=== PATIENT | male | born 1960 | race Caucasian/White ===

== ENCOUNTER 2017-02-27 19:13 | Emergency (ER) | payer OTHER ==
[2017-02-27 19:13] VITALS: BMI 31.6
[2017-02-27 19:27] VITALS: TEMP 97.8
[2017-02-27] MEDS ORDERED: Aspirin 325 mg EC Tablets PO STA (19:48)
[2017-02-27] MEDS ORDERED: Aspirin 325 mg EC Tablets PO ONE (19:57)
[2017-02-27 20:04] LABS: BASO % 0.8 % (0.0-2.0); EOS # 0.2 K/uL (0.0-0.7); LYMPH # 1.6 K/uL (1.0-4.3); LYMPH % 31.4 % (20.0-40.0); MEAN CELL VOLUME 86.9 fL (80.0-94.0); MEAN CORPUSCULAR HEMOGLOBIN 27.8 pg (27.0-31.0); MONO # 0.9 K/uL (0.0-0.8); RED CELL DISTRIBUTION WIDTH 13.7 % (11.5-14.5); WHITE BLOOD COUNT 5.1 K/uL (4.8-10.8)
[2017-02-27] MEDS ORDERED: Alum-Mag Hydrox-Simethicone Susp (30 mL) PO STA (20:12)
[2017-02-27 20:18] LABS: CHLORIDE 101 mmol/L (98-107); SODIUM 137 mmol/L (132-148)
[2017-02-27 20:19] LABS: POTASSIUM 3.9 mmol/L (3.6-5.2)
[2017-02-27 20:21] LABS: ALB/GLOB RATIO 1.1 (1.0-2.1); ALKALINE PHOSPHATASE 83 U/L (38-126); ALT/SGPT 33 U/L (21-72); AST/SGOT 36 U/L (17-59); BILIRUBIN,TOTAL 0.6 mg/dL (0.2-1.3); BLOOD UREA NITROGEN 17 mg/dL (9-20); CARBON DIOXIDE 25 mmol/L (22-30); GFR AFRICAN-AMERICAN > 60; TOTAL PROTEIN 7.9 g/dL (6.3-8.3)
[2017-02-27 20:22] LABS: ALCOHOL SERUM < 10 mg/dl (0-10); CALCIUM 8.8 mg/dl (8.6-10.4); GLUCOSE,RANDOM 79 mg/dL (75-110)
[2017-02-27 20:23] LABS: INR 1.1; PARTIAL THROMBOPLASTIN TIME 35 SECONDS (21-34)
[2017-02-27] MEDS ORDERED: Alum-Mag Hydrox-Simethicone Susp (30 mL) ONE (20:28)
--- NOTE | 2017-02-27 20:30 | C.PDOC ---
Time Seen by Provider: 02/27/17 19:39 Chief Complaint (Nursing): Chest Pain Past Medical History Vital Signs: Last Vital Signs Temp 97.8 F 02/27/17 21:01 Pulse 54 L 02/27/17 21:01 Resp 15 02/27/17 21:01 BP 108/64 02/27/17 21:01 Pulse Ox 94 L 02/27/17 21:01 - Medical History PMH: Cardia Arrhythmia Denies: Chronic Kidney Disease - [facility] Procedures INSERT OF MONITOR DEV INTO CHEST SUBCU/FASCIA, PERC APPROACH (07/23/16) Family History: States: Unknown Family Hx - Social History Hx Tobacco Use: Yes Hx Alcohol Use: Yes Hx Substance Use: No - Immunization History Hx Tetanus Toxoid Vaccination: No Hx Influenza Vaccination: No Hx Pneumococcal Vaccination: No ED Course And Treatment - Laboratory Results Result Diagrams: 02/27/17 19:57 02/27/17 19:57 Lab Interpretation: Normal (trop, bnp, d-dimer neg.) ECG: Interpreted By Me ECG Rhythm: Sinus Rhythm ECG Interpretation: Normal Rate From EC O2 Sat by Pulse Oximetry: 98 Pulse Ox Interpretation: Normal - Radiology CXR: Interpreted by Me CXR Interpretation: Yes: No Acute Disease Progress Note: Pepcid 20 IV and Maalox 30 cc PO with complete resolution of symptoms. Highly indicative of GI etiology of atypical CP Reevaluation Time: 20:50 Reassessment Condition: Improved Medical Decision Making Medical Decision Making: today is 8th ED visit with normal cardiac w/u. many inpatient evals with neg w/u. 11/02: normal perfusion stress test 05/01: normal cardiac cath 08/01 loop recorder installed 09/02: Loop recorder eval with no events. highly suspect etiology OTHER than cardiac, suggest GI- considering excellent exercise tolerance (works in [employer] repeatedly running up and down stairs) and middle obesity, consider GERD and/or hiatal hernia Refer to GI Stripping [facility]iler Disposition Doctor Will See Patient In The: Office Counseled Patient/Family Regarding: Studies Performed, Diagnosis - Disposition Referrals: Ivone Ma MD [Staff Provider] - Zayra Louis [Staff Provider] - Tevin Pickett MD [Staff Provider] - Disposition: HOME/ ROUTINE Disposition Time: 20:45 Condition: GOOD Additional Instructions: GERD: continue Pepcid 20 mg @ night and Maalox 30 cc (one tablespoon) 4-5x/day between meals Your discomfort MUCH improved with Maalox 30 cc's. suspect GERD and/or Hiatal Hernia Observe a GERD diet Conitinue to loose weight Consider GI evaluation with GI [facility] Chest Pain: LOW susp of cardiac etiology Follow-up with Dr. Ma to have your even recorder interrogated Follow-up w Dr. Annita Pickett- your PMD- for further treatment guidance. Prescriptions: Aluminum Hydroxide/Magnesium [Maalox Plus 30 ml] 30 ml PO 5XD PRN #240 ml PRN Reason: gerd Famotidine [Pepcid] 20 mg PO HS #30 tab Instructions: Gastroesophageal Reflux Disease (ED), Thoracic Pain (ED) - Clinical Impression Clinical Impression: Chest discomfort
[2017-02-27 21:01] VITALS: BP 108/64; PULSE 54; RESP 15
[2017-02-27 21:26] VITALS: O2SAT 98
--- NOTE | 2017-02-28 08:32 | RAD ---
PROCEDURE: CHEST RADIOGRAPH, 1 VIEW HISTORY: Shortness of breath COMPARISON: 10/19/2016 FINDINGS: LUNGS: Mild venous congestion. External device projecting over the medial left mukesh thorax. PLEURA: No pneumothorax or pleural fluid seen. CARDIOVASCULAR: Tortuous aorta. Heart size within normal limits. OSSEOUS STRUCTURES: No significant abnormalities. VISUALIZED UPPER ABDOMEN: Normal. OTHER FINDINGS: None. IMPRESSION: Mild venous congestion.
--- NOTE | 2017-02-28 23:52 | CARD ---
APPROVED REPORT EKG Measurement Heart [id number] <Conclusion> Sinus bradycardia Otherwise normal ECG
== END 2017-02-27 21:01 | disposition home or self-care (01) ==
LOC: C.ER 19:13
DX: R07.89 Other chest pain (principal)

== ENCOUNTER 2017-09-01 12:22 | Inpatient (IN) | payer OTHER ==
[2017-09-01 12:23] VITALS: BMI 36.1
[2017-09-01 14:57] LABS: BASO % 0.7 % (0.0-2.0); EOS # 0.1 K/uL (0.0-0.7); EOS % 2.3 % (0.0-4.0); HEMATOCRIT 44.8 % (35.0-51.0); LYMPH # 1.6 K/uL (1.0-4.3); LYMPH % 33.2 % (20.0-40.0); MEAN CELL VOLUME 86.2 fL (80.0-94.0); MEAN CORPUSCULAR HEMOGLOBIN 28.2 pg (27.0-31.0); MEAN CORPUSCULAR HGB CONC 32.7 g/dL (33.0-37.0); MEAN PLATELET VOLUME 9.1 fL (7.2-11.7); MONO # 0.7 K/uL (0.0-0.8); MONO % 14.6 % (0.0-10.0); NRBC % 0.3 % (0.0-2.0); RED CELL DISTRIBUTION WIDTH 13.8 % (11.5-14.5); WHITE BLOOD COUNT 4.9 K/uL (4.8-10.8)
[2017-09-01 15:10] LABS: ALKALINE PHOSPHATASE 99 U/L (38-126); ALT/SGPT 43 U/L (21-72); BILIRUBIN,TOTAL 0.7 mg/dL (0.2-1.3); BLOOD UREA NITROGEN 14 mg/dL (9-20); CALCIUM 8.9 mg/dl (8.6-10.4); CARBON DIOXIDE 28 mmol/L (22-30); CHLORIDE 103 mmol/L (98-107); GFR AFRICAN-AMERICAN > 60; GLUCOSE,RANDOM 78 mg/dL (75-110); POTASSIUM 3.9 mmol/L (3.6-5.2); SODIUM 138 mmol/L (132-148); TOTAL PROTEIN 8.9 g/dL (6.3-8.3)
[2017-09-01 15:23] LABS: ALB/GLOB RATIO 0.9 (1.0-2.1); AST/SGOT 30 U/L (17-59)
--- NOTE | 2017-09-01 16:15 | RAD ---
PROCEDURE: CHEST RADIOGRAPH, 1 VIEW HISTORY: epi abd pain, ? chest pain COMPARISON: 02/27/2017 and the 10/19/2016 portable chest x-ray FINDINGS: LUNGS: Clear. PLEURA: No pneumothorax or pleural fluid seen. CARDIOVASCULAR: Normal size. The small metallic density projecting over the heart inferred as a cardiac monitoring device is unchanged in appearance para OSSEOUS STRUCTURES: No significant abnormalities. VISUALIZED UPPER ABDOMEN: The asymmetrically elevated right hemidiaphragm most closely approximates the 10/19/2016 chest x-ray appearing Interval asymmetrical elevation of the OTHER FINDINGS: None. IMPRESSION: No active disease.
[2017-09-01] MEDS ORDERED: Morphine 4 MG/ML VIAL ONE (16:26)
[2017-09-01] MEDS ORDERED: Iohexol 300 100 ML IJ ONE (16:51)
--- NOTE | 2017-09-01 17:36 | CT ---
PROCEDURE: CT Abdomen and Pelvis with contrast HISTORY: LUQ abd pain COMPARISON: None available. TECHNIQUE: Contrast dose: 100 cc Omnipaque 300 Radiation dose: Total exam DLP = 921.87 mGy-cm. This CT exam was performed using one or more of the following dose reduction techniques: Automated exposure control, adjustment of the mA and/or kV according to patient size, and/or use of iterative reconstruction technique. FINDINGS: LOWER THORAX: No visible consolidation, pleural effusion, or pneumothorax. Small hiatal hernia/distal esophageal wall thickening. LIVER: Unremarkable unenhanced appearance. GALLBLADDER AND BILE DUCTS: Unremarkable unenhanced appearance. PANCREAS: Unremarkable unenhanced appearance. SPLEEN: Unremarkable unenhanced appearance. ADRENALS: Unremarkable unenhanced appearance. KIDNEYS AND URETERS: The kidneys enhance symmetrically. No hydronephrosis or obstructing calculus identified. Indeterminate 10 mm hypodensity, left midpole kidney. VASCULATURE: No aortic aneurysm. BOWEL: Stomach is nondistended. Lack of oral contrast limits evaluation for bowel pathology. Bowel loops appear within normal limits of caliber without evidence of obstruction. Moderate constipation. APPENDIX: The appendix appears within normal limits of caliber. No secondary signs of acute appendicitis. PERITONEUM: No significant free fluid. No definite free air. LYMPH NODES: No bulky adenopathy identified. BLADDER: Unremarkable. REPRODUCTIVE: Unremarkable. BONES: No acute osseous abnormality is detected. OTHER FINDINGS: None. IMPRESSION: Moderate constipation. Indeterminate 10 mm left renal hypodensity; suggest further evaluation with renal ultrasound.
--- NOTE | 2017-09-01 17:59 | C.PDOC ---
History Of Present Illness The patient reports that yesterday he developed sudden onset of LUQ abdominal pain. Patient reports that the pain radiated up to the left chest and was associated with 2-3 episode of vomiting. He states that the last episode was blood streaked. Patient also reports episodes of labile bradycardia, with heart rate dropping to 30s and rising to 50-60s. Denies diarrhea, fever, dysuria, constipation, SOB, cough, trauma, pleuritic pain. Time Seen by Provider: 09/01/17 14:07 Chief Complaint (Nursing): Abdominal Pain History Per: Patient History/Exam Limitations: no limitations Onset/Duration Of Symptoms: Hrs, Sudden Onset Current Symptoms Are (Timing): Still Present Location Of Pain/Discomfort: LUQ Radiation Of Pain To:: None Quality Of Discomfort: "Pain" Associated Symptoms: denies: Fever, Diarrhea, Constipation Additional History Per: Patient Past Medical History Reviewed: Historical Data, Nursing Documentation, Vital Signs Vital Signs: Last Vital Signs Temp 97.9 F 09/02/17 04:00 Pulse 42 L 09/02/17 04:26 Resp 20 09/02/17 04:00 BP 100/56 L 09/02/17 04:00 Pulse Ox 96 09/02/17 04:00 - Medical History PMH: Cardia Arrhythmia (Bradycardia) Denies: Alzheimer's Disease, Anemia, Anxiety, Arthritis, Asthma, Bipolar Disorder, Bronchitis, CHF, COPD, Crohn's Disease, Dementia, Depression, Diverticulitis, Emphysema, Fibromyalgia, Fractures, Gastrointestinal Ulcer, Gall Bladder Disease, HIV, HTN, Hypercholesterolemia, Hyperthyroidism, Hypothyroidism, Kidney Stones, Migraine, Mitral Valve Prolapse, Osteoporosis, Pancreatitis, Paranoia, Parkinson's Disease, Peripheral Edema, Pneumonia, Post Traumatic Stress Disorder, Chronic Kidney Disease, Schizophrenia, Seizures, Sickle Cell Disease, Sexually Transmitted Disease, Sleep Apnea, TIA Surgical History: No Surg Hx Denies: Appendectomy, Cholecystectomy, Coronary Stent, Pacemaker - [facility] Procedures INSERT OF MONITOR DEV INTO CHEST SUBCU/FASCIA, PERC APPROACH (07/23/16) Family History: States: Unknown Family Hx - Social History Hx Tobacco Use: Yes Hx Alcohol Use: Yes (socially) Hx Substance Use: No - Immunization History Hx Tetanus Toxoid Vaccination: No Hx Influenza Vaccination: No Hx Pneumococcal Vaccination: No Review Of Systems Constitutional: Negative for: Fever, Chills Respiratory: Negative for: Cough, Shortness of Breath Gastrointestinal: Positive for: Abdominal Pain (LUQ). Negative for: Constipation Genitourinary: Negative for: Dysuria Physical Exam - Physical Exam Appears: Non-toxic, No Acute Distress Skin: Normal Color, Warm, Dry Head: Atraumatic, Normacephalic Eye(s): bilateral: Normal Inspection Oral Mucosa: Moist Neck: Supple Chest: Symmetrical, No Deformity, No Tenderness Cardiovascular: Rhythm Regular, No Murmur Respiratory: Normal Breath Sounds, No Rales, No Rhonchi, No Wheezing Gastrointestinal/Abdominal: Soft, No Tenderness, No Guarding, No Rebound Back: No Vertebral Tenderness, No Paraspinal Tenderness Extremity: Normal ROM, Capillary Refill (less than 2 seconds ) Neurological/Psych: Oriented x3, Normal Speech, Normal Cognition Gait: Steady ED Course And Treatment - Laboratory Results Result Diagrams: 09/01/17 14:53 09/01/17 14:53 ECG: Interpreted By Me, Viewed By Me ECG Rhythm: Sinus Bradycardia Rate From EC O2 Sat by Pulse Oximetry: 100 (on RA ) Pulse Ox Interpretation: Normal - Other Rad CXR X-Ray: Interpreted by Me, Viewed By Me, Read By Radiologist Interpretation: PROCEDURE: CHEST RADIOGRAPH, 1 VIEW. HISTORY: epi abd pain, ? chest pain. COMPARISON: 02/27/2017 and the 10/19/2016 portable chest x-ray. FINDINGS: LUNGS: Clear. PLEURA: No pneumothorax or pleural fluid seen. CARDIOVASCULAR: Normal size. The small metallic density projecting over the heart inferred as a cardiac monitoring device is unchanged in appearance para. OSSEOUS STRUCTURES: No significant abnormalities. VISUALIZED UPPER ABDOMEN: The asymmetrically elevated right hemidiaphragm most closely approximates the 10/19/2016 chest x-ray appearing Interval asymmetrical elevation of the. OTHER FINDINGS: None. IMPRESSION: No active disease. - CT Scan/US CT A/P Other Rad Studies (CT/US): Interpreted By Me, Read By Radiologist, Radiology Report Reviewed CT/US Interpretation: PROCEDURE: CT Abdomen and Pelvis with contrast. HISTORY : LUQ abd pain. COMPARISON: None available. TECHNIQUE: Contrast dose: 100 cc Omnipaque 300. Radiation dose: Total exam DLP = 921.87 mGy-cm. This CT exam was performed using one or more of the following dose reduction techniques : Automated exposure control, adjustment of the mA and/or kV according to patient size, and/or use of iterative reconstruction technique. FINDINGS: LOWER THORAX: No visible consolidation, pleural effusion, or pneumothorax. Small hiatal hernia/distal esophageal wall thickening. LIVER: Unremarkable unenhanced appearance. GALLBLADDER AND BILE DUCTS: Unremarkable unenhanced appearance. PANCREAS: Unremarkable unenhanced appearance. SPLEEN: Unremarkable unenhanced appearance. ADRENALS: Unremarkable unenhanced appearance. KIDNEYS AND URETERS: The kidneys enhance symmetrically. No hydronephrosis or obstructing calculus identified. Indeterminate 10 mm hypodensity, left midpole kidney. VASCULATURE: No aortic aneurysm. BOWEL: Stomach is nondistended. Lack of oral contrast limits evaluation for bowel pathology. Bowel loops appear within normal limits of caliber without evidence of obstruction. Moderate constipation. APPENDIX: The appendix appears within normal limits of caliber. No secondary signs of acute appendicitis. PERITONEUM : No significant free fluid. No definite free air. LYMPH NODES: No bulky adenopathy identified. BLADDER: Unremarkable. REPRODUCTIVE: Unremarkable. BONES: No acute osseous abnormality is detected. OTHER FINDINGS: None. IMPRESSION: Moderate constipation. Indeterminate 10 mm left renal hypodensity ; suggest further evaluation with renal ultrasound. Medical Decision Making Medical Decision Making: Progress: Bloodwork, CXR, EKG, CT A/P ordered and reviewed. Morphine IVP, Protonix IVP, Toradol IVP and Zofran IVP administered. CXR results are negative. The patient states that he was being followed by an EP doctor, Dr. Howe and had a loop monitor placed 2 years ago but he never followed up. Case discussed with Dr. Hendrix (medicine business solution analyst), who accepted the patient for admission for chest pain to rule out ACS and Bradycardia. Disposition - Disposition Disposition: HOSPITALIZED Disposition Time: 16:00 Condition: STABLE - Clinical Impression Clinical Impression: Chest pain, Bradycardia - PA / ACCOUNTANT COST / Resident Statement MD/DO has reviewed & agrees with the documentation as recorded. - Scribe Statement The provider has reviewed the documentation as recorded by the Scribe (Shelli Pickett) All medical record entries made by the Scribe were at my direction and personally dictated by me. I have reviewed the chart and agree that the record accurately reflects my personal performance of the history, physical exam, medical decision making, and the department course for this patient. I have also personally directed, reviewed, and agree with the discharge instructions and disposition.
--- NOTE | 2017-09-01 22:43 | CP.PCM.HP ---
History of Present Illness - History of Present Illness History of Present Illness: CC: left lower chest wall pain, epigastric pain associated with nausea/vomitting HPI: The patient reports that yesterday he developed sudden onset of LUQ abdominal pain. Patient reports that the pain radiated up to the left chest and was associated with 2-3 episode of vomiting. He states that the last episode was blood streaked. Patient also reports episodes of labile bradycardia, with heart rate dropping to 30s and rising to 50-60s. Denies diarrhea, fever, dysuria , constipation, SOB, cough, trauma, pleuritic pain.Pt reports that 2 years ago he was having dizziness and falls and he was seen by roving marker and was prescribed medicine which he didinot folow up, he has not seen an D since then Present on Admission - Present on Admission Any Indicators Present on Admission: Yes Review of Systems - Review of Systems Systems not reviewed;Unavailable: Acuity of Condition, Unstable Vital Signs - Constitutional Constitutional: Fatigue, Lethargy - EENT Eyes: absent: As Per HPI, Blind Spots, Blurred Vision, Change in Vision, Decreased Night Vision, Diplopia, Discharge, Dry Eye, Exophthalmos, Floaters, Irritation, Itchy Eyes, Loss of Peripheral Vision, Pain, Photophobia, Requires Corrective Lenses, Sees Flashes, Spots in Vision, Tunnel Vision, Other Visual Disturbances, Loss of Vision, Other Ears: absent: As Per HPI, Decreased Hearing, Ear Discharge, Ear Pain, Tinnitus, Abnormal Hearing, Disequilibrium, Dizziness, Other Nose/Mouth/Throat: absent: As Per HPI, Epistaxis, Nasal Congestion, Nasal Discharge, Nasal Obstruction, Nasal Trauma, Nose Pain, Post Nasal Drip, Sinus Pain, Sinus Pressure, Bleeding Gums, Change in Voice, Dental Pain, Dry Mouth, Dysphagia, Halitosis, Hoarsness, Lip Swelling, Mouth Lesions, Mouth Pain, Odynophagia, Sore Throat, Throat Swelling, Tongue Swelling, Facial Pain, Neck Pain, Neck Mass, Other - Cardiovascular Cardiovascular: Chest Pain, Dyspnea - Respiratory Respiratory: absent: As Per HPI, Cough, Dyspnea, Hemoptysis, Dyspnea on Exertion , Wheezing, Snoring, Stridor, Pain on Inspiration, Chest Congestion, Excessive Mucous Production, Change in Mucous Color, Pain with Coughing, Other - Gastrointestinal Gastrointestinal: Abdominal Pain. absent: As Per HPI, Belching, Bloating, Change in Bowel Habits, Change in Stool Character, Coffee Ground Emesis, Constipation, Cramping, Diarrhea, Dyspepsia, Dysphagia, Early Satiety, Excessive Flatus, Fecal Incontinence, Heartburn, Hematemesis, Hematochezia, Loose Stools, Melena, Nausea, Odynophagia, Temesmus, Vomiting, Other - Genitourinary Genitourinary: absent: As Per HPI, Change in Urinary Stream, Difficulty Urinating, Dysuria, Flank Pain, Hematuria, Pyuria, Nocturia, Urinary Incontinence, Urinary Frequency, Urinary Hesitance, Urinary Urgency, Voiding Freq/Small Amts, Freq UTI, Hx Renal/Bladder Calculi, Hx /Renal Surgery, Bladder Distension, Other Past Patient History - Infectious Disease Hx of Infectious Diseases: None - Past Medical History & Family History Past Medical History?: No - Past Social History Smoking Status: Light Smoker < 10 Cigarettes Daily - CARDIAC Hx Cardiac Disorders: Yes Hx Cardia Arrhythmia: Yes (Bradycardia) Hx Congestive Heart Failure: No Hx Hypercholesterolemia: No Hx Hypertension: No Hx Mitral Valve Prolapse: No Hx Pacemaker: No Hx Peripheral Edema: No - PULMONARY Hx Respiratory Disorders: No Hx Asthma: No Hx Bronchitis: No Hx Chronic Obstructive Pulmonary Disease (COPD): No Hx Emphysema: No Hx Pneumonia: No Hx Sleep Apnea: No - NEUROLOGICAL Hx Neurological Disorder: Yes Hx Alzheimer's Disease: No Hx Dementia: No Hx Dizziness: Yes Hx Migraine: No Hx Parkinson's Disease: No Hx Seizures: No Hx Syncope: Yes Hx Transient Ischemic Attacks (TIA): No - HEENT Hx HEENT Problems: No - RENAL Hx Chronic Kidney Disease: No Hx Kidney Stones: No - ENDOCRINE/METABOLIC Hx Endocrine Disorders: No Hx Hyperthyroidism: No Hx Hypothyroidism: No - HEMATOLOGICAL/ONCOLOGICAL Hx Blood Disorders: No (Denies) Hx Anemia: No Hx Human Immunodeficiency Virus (HIV): No Hx Sickle Cell Disease: No - INTEGUMENTARY Hx Dermatological Problems: No - MUSCULOSKELETAL/RHEUMATOLOGICAL Hx Musculoskeletal Disorders: No Hx Arthritis: No Hx Falls: No Hx Fractures: No Hx Osteoporosis: No - GASTROINTESTINAL Hx Gastrointestinal Disorders: Yes Hx Crohn's Disease: No Hx Diverticulitis: No Hx Gall Bladder Disease: No Hx Pancreatitis: No Hx Vomiting: Yes (08/30/17, 09/01/17) - GENITOURINARY/GYNECOLOGICAL Hx Genitourinary Disorders: Yes (Pain w/ urination) Hx Sexually Transmitted Disorders: No - PSYCHIATRIC Hx Psychophysiologic Disorder: No Hx Anxiety: No Hx Bipolar Disorder: No Hx Depression: No Hx Paranoia: No Hx Post Traumatic Stress Disorder: No Hx Schizophrenia: No Hx Substance Use: No - SURGICAL HISTORY Hx Surgeries: No Hx Appendectomy: No Hx Cholecystectomy: No Hx Coronary Stent: No - ANESTHESIA Hx Anesthesia: No Hx Anesthesia Reactions: No Hx Malignant Hyperthermia: No Meds Allergies/Adverse Reactions: Allergies Allergy/AdvReac Type Severity Reaction Status Date / Time No Known Allergies Allergy Verified 09/01/17 12:27 Physical Exam - Constitutional Appears: No Acute Distress, Younger Than Stated Age - Head Exam Head Exam: ATRAUMATIC, NORMAL INSPECTION, NORMOCEPHALIC - Eye Exam Eye Exam: EOMI, Normal appearance, PERRL Pupil Exam: NORMAL ACCOMODATION, PERRL - Respiratory Exam Respiratory Exam: Decreased Breath Sounds - Cardiovascular Exam Cardiovascular Exam: Irregular Rhythm, +S1, +S2 - GI/Abdominal Exam GI & Abdominal Exam: Normal Bowel Sounds, Tenderness - Rectal Exam Rectal Exam: Deferred Results - Vital Signs Recent Vital Signs: Last Vital Signs Temp 97.8 F 09/01/17 20:33 Pulse 46 L 09/01/17 20:33 Resp 18 09/01/17 20:33 BP 129/71 09/01/17 20:33 Pulse Ox 98 09/01/17 20:33 - Labs Result Diagrams: 09/01/17 14:53 09/01/17 14:53 Labs: Laboratory Results - last 24 hr 09/01/17 09/01/17 09/01/17 14:53 14:53 15:07 WBC 4.9 RBC 5.20 Hgb 14.7 Hct 44.8 MCV 86.2 MCH 28.2 MCHC 32.7 L RDW 13.8 Plt Count 196 MPV 9.1 Neut % (Auto) 49.2 L Lymph % (Auto) 33.2 [place] % (Auto) 14.6 H Eos % (Auto) 2.3 Baso % (Auto) 0.7 Neut # 2.4 Lymph # 1.6 [place] # 0.7 Eos # 0.1 Baso # 0.0 Sodium 138 Potassium 3.9 Chloride 103 Carbon Dioxide 28 Anion Gap 12 BUN 14 Creatinine 0.8 Est GFR ( Amer) > 60 Est GFR (Non-Af Amer) > 60 Random Glucose 78 Lactic Acid 0.9 Calcium 8.9 Total Bilirubin 0.7 AST 30 ALT 43 Alkaline Phosphatase 99 Total Creatine Kinase CK-MB (Mass) Troponin I < 0.0120 Troponin I, Quant Total Protein 8.9 H Albumin 4.2 Globulin 4.7 H Albumin/Globulin Ratio 0.9 L Lipase 41 09/01/17 21:46 WBC RBC Hgb Hct MCV MCH MCHC RDW Plt Count MPV Neut % (Auto) Lymph % (Auto) [place] % (Auto) Eos % (Auto) Baso % (Auto) Neut # Lymph # [place] # Eos # Baso # Sodium Potassium Chloride Carbon Dioxide Anion Gap BUN Creatinine Est GFR ( Amer) Est GFR (Non-Af Amer) Random Glucose Lactic Acid Calcium Total Bilirubin AST ALT Alkaline Phosphatase Total Creatine Kinase 126 CK-MB (Mass) 1.39 Troponin I Troponin I, Quant < 0.0120 Total Protein Albumin Globulin Albumin/Globulin Ratio Lipase Assessment & Plan (1) Abdominal pain Assessment and Plan: underlying gastritis might be the cause Gi eval Status: Acute (2) Chest pain Assessment and Plan: rule out OK Status: Acute (3) Bradycardia Assessment and Plan: etilogy pending cardiology eval Status: Chronic
[2017-09-02] MEDS ORDERED: Enoxaparin 40 mg Syringe SC SCH (10:00)
--- NOTE | 2017-09-02 10:55 | CARD ---
APPROVED REPORT EKG Measurement Heart [id number] <Conclusion> Sinus bradycardia Otherwise normal ECG
[2017-09-02] MEDS ORDERED: POLYETHYLENE GLYCOL 3350 17 GM/Dose PACKET PO STA (17:25)
--- NOTE | 2017-09-02 17:30 | US ---
PROCEDURE: Ultrasound of the Kidneys HISTORY: hypodensity in CT scan COMPARISON: None available. TECHNIQUE: Sonogram of the kidneys. FINDINGS: RIGHT KIDNEY: Measures: 10.0 cm. Normal in size, contour and echogenicity. No stone, solid mass lesion or hydronephrosis visualized. LEFT KIDNEY: Measures: 11.2 cm. Normal in size, contour and echogenicity. Mid to lower pole cortical cyst, 1.2 cm. No solid mass. No calculus or hydronephrosis. OTHER FINDINGS: None. IMPRESSION: 12 mm left mid to lower pole renal cortical cyst. Otherwise unremarkable.
[2017-09-02] MEDS ORDERED: Magnesium Citrate Oral SOL (300 ml) PO ONE (17:42)
[2017-09-02 20:12] LABS: INR 1.1
[2017-09-02 20:44] LABS: CARCINOEMBRYONIC ANTIGEN 1.7 ng/mL (0-3.0)
[2017-09-02 20:48] LABS: CA 19-9 4.7 U/mL (0-37)
--- NOTE | 2017-09-02 22:24 | CP.PCM.CON ---
History of Present Illness - History of Present Illness History of Present Illness: Chart reviewed Seen and examined 57 year old admitted wit history of abdominal pain vomiting and slow heart rates ; documentation strips were unavailable No history of diaphoresis syncope palpitations chest pain dyspnea he was here two years back with a history of recurrent syncope; dr brooks placed a loop recorder but he never followed up; three months back he had another episode of syncope; did not seek any medical attention Past medical: syncope Loop recorder implant Past surgery: Loop recorder implant medications; none smokes; denied alcohol or drug abuse older brother has a pacemaker implanted Past Patient History - Infectious Disease Hx of Infectious Diseases: None - Past Medical History & Family History Past Medical History?: No - Past Social History Smoking Status: Light Smoker < 10 Cigarettes Daily - CARDIAC Hx Cardia Arrhythmia: Yes (Bradycardia) Hx Congestive Heart Failure: No Hx Hypercholesterolemia: No Hx Hypertension: No Hx Mitral Valve Prolapse: No Hx Pacemaker: No Hx Peripheral Edema: No - PULMONARY Hx Asthma: No Hx Bronchitis: No Hx Chronic Obstructive Pulmonary Disease (COPD): No Hx Emphysema: No Hx Pneumonia: No Hx Sleep Apnea: No - NEUROLOGICAL Hx Alzheimer's Disease: No Hx Dementia: No Hx Migraine: No Hx Parkinson's Disease: No Hx Seizures: No Hx Transient Ischemic Attacks (TIA): No - HEENT Hx HEENT Problems: No - RENAL Hx Chronic Kidney Disease: No Hx Kidney Stones: No - ENDOCRINE/METABOLIC Hx Hyperthyroidism: No Hx Hypothyroidism: No - HEMATOLOGICAL/ONCOLOGICAL Hx Anemia: No Hx Human Immunodeficiency Virus (HIV): No Hx Sickle Cell Disease: No - INTEGUMENTARY Hx Dermatological Problems: No - MUSCULOSKELETAL/RHEUMATOLOGICAL Hx Arthritis: No Hx Fractures: No Hx Osteoporosis: No - GASTROINTESTINAL Hx Crohn's Disease: No Hx Diverticulitis: No Hx Gall Bladder Disease: No Hx Pancreatitis: No - GENITOURINARY/GYNECOLOGICAL Hx Sexually Transmitted Disorders: No - PSYCHIATRIC Hx Anxiety: No Hx Bipolar Disorder: No Hx Depression: No Hx Paranoia: No Hx Post Traumatic Stress Disorder: No Hx Schizophrenia: No Hx Substance Use: No - SURGICAL HISTORY Hx Appendectomy: No Hx Cholecystectomy: No Hx Coronary Stent: No - ANESTHESIA Hx Anesthesia: No Hx Anesthesia Reactions: No Hx Malignant Hyperthermia: No Meds Allergies/Adverse Reactions: Allergies Allergy/AdvReac Type Severity Reaction Status Date / Time No Known Allergies Allergy Verified 09/01/17 12:27 - Medications Medications: Current Medications Morphine Sulfate (Morphine) 2 mg IVP Q4 PRN PRN Reason: Pain, moderate (4-7) Ondansetron HCl (Zofran Inj) 4 mg IVP Q4 PRN PRN Reason: Nausea/vomitting Pantoprazole Sodium (Protonix Inj) 40 mg IVP DAILY [facility] Last Admin: 09/02/17 10:29 Dose: 40 mg Polyethylene Glycol (Miralax) 17 gm PO DAILY [facility] Rosuvastatin Calcium (Crestor) 20 mg PO HS [facility] Last Admin: 09/01/17 21:20 Dose: 20 mg Results - Vital Signs Recent Vital Signs: Last Vital Signs Temp 97.8 F 09/02/17 15:52 Pulse 44 L 09/02/17 15:52 Resp 20 09/02/17 15:52 BP 107/62 09/02/17 15:52 Pulse Ox 96 09/02/17 15:52 - Labs Result Diagrams: 09/01/17 14:53 09/01/17 14:53 Labs: Laboratory Results - last 24 hr 09/01/17 09/02/17 09/02/17 21:46 06:28 07:39 PT INR APTT Total Creatine Kinase CK-MB (Mass) Troponin I, Quant < 0.0120 Carcinoembryonic Ag CA 19-9 Antigen TSH 3rd Generation 1.91 Urine Opiates Screen Positive H Urine Methadone Screen Negative Ur Barbiturates Screen Negative Ur Phencyclidine Scrn Negative Ur Amphetamines Screen Negative U Benzodiazepines Scrn Negative U Oth Cocaine Metabols Negative U Cannabinoids Screen Negative 09/02/17 09/02/17 09/02/17 07:39 18:25 19:57 PT 12.2 INR 1.1 APTT 38 H Total Creatine Kinase 117 98 CK-MB (Mass) 1.19 1.15 Troponin I, Quant < 0.0120 Carcinoembryonic Ag CA 19-9 Antigen TSH 3rd Generation Urine Opiates Screen Urine Methadone Screen Ur Barbiturates Screen Ur Phencyclidine Scrn Ur Amphetamines Screen U Benzodiazepines Scrn U Oth Cocaine Metabols U Cannabinoids Screen 09/02/17 19:57 PT INR APTT Total Creatine Kinase CK-MB (Mass) Troponin I, Quant Carcinoembryonic Ag 1.7 CA 19-9 Antigen 4.7 TSH 3rd Generation Urine Opiates Screen Urine Methadone Screen Ur Barbiturates Screen Ur Phencyclidine Scrn Ur Amphetamines Screen U Benzodiazepines Scrn U Oth Cocaine Metabols U Cannabinoids Screen Assessment & Plan - Assessment and Plan (Free Text) Assessment: The index bradycardia is likely a vagal response to vomiting and or abdominal pain via a visceral reflex Telemetry showed periods of bradycardia in the thirtees; examination was unremarkable 12 lead EKG was unremarkable; ECho showed mild aortic incompetence there is no suggestion that the abdominal pain reflects coronary arterial disease The prior history of syncope is a concern; the bradycardia is of unclear significance Plan Interrogate Loop recorder; [employer] Thyroid function Abdominal pain work up Plan: As above
--- NOTE | 2017-09-02 23:35 | CP.PCM.PN ---
Subjective - Date & Time of Evaluation Date of Evaluation: 09/02/17 Time of Evaluation: 19:00 - Subjective Subjective: Pt seen and examined,feeling cormfortable and relaxed, no chest pain now, was also seen by cardiology Objective - Vital Signs/Intake and Output Vital Signs (last 24 hours): Temp Pulse Resp BP Pulse Ox 97.8 F 44 L 20 107/62 96 09/02/17 15:52 09/02/17 15:52 09/02/17 15:52 09/02/17 15:52 09/02/17 15:52 Intake and Output: 09/02/17 09/03/17 18:59 06:59 Intake Total 500 Balance 500 - Medications Medications: Current Medications Morphine Sulfate (Morphine) 2 mg IVP Q4 PRN PRN Reason: Pain, moderate (4-7) Ondansetron HCl (Zofran Inj) 4 mg IVP Q4 PRN PRN Reason: Nausea/vomitting Pantoprazole Sodium (Protonix Inj) 40 mg IVP DAILY [facility] Last Admin: 09/02/17 10:29 Dose: 40 mg Polyethylene Glycol (Miralax) 17 gm PO DAILY [facility] Rosuvastatin Calcium (Crestor) 20 mg PO HS [facility] Last Admin: 09/02/17 22:41 Dose: 20 mg - Labs Labs: 09/01/17 14:53 09/01/17 14:53 PT 12.2 SECONDS (9.7-12.2) 09/02/17 19:57 INR 1.1 09/02/17 19:57 APTT 38 SECONDS (21-34) H 09/02/17 19:57 - Constitutional Appears: No Acute Distress - Head Exam Head Exam: ATRAUMATIC, NORMAL INSPECTION, NORMOCEPHALIC - Eye Exam Eye Exam: EOMI, Normal appearance, PERRL Pupil Exam: NORMAL ACCOMODATION, PERRL - Respiratory Exam Respiratory Exam: Clear to Ausculation Bilateral, NORMAL BREATHING PATTERN - Cardiovascular Exam Cardiovascular Exam: Bradycardia, +S1, +S2. absent: Murmur - GI/Abdominal Exam GI & Abdominal Exam: Soft, Normal Bowel Sounds. absent: Tenderness Assessment and Plan (1) Abdominal pain Assessment & Plan: The index bradycardia is likely a vagal response to vomiting and or abdominal pain via a visceral reflex Telemetry showed periods of bradycardia in the thirtees; examination was unremarkable 12 lead EKG was unremarkable; ECho showed mild aortic incompetence there is no suggestion that the abdominal pain reflects coronary arterial disease The prior history of syncope is a concern; the bradycardia is of unclear significance Plan Interrogate Loop recorder; [employer] Thyroid function Abdominal pain work up Status: Acute (2) Chest pain Status: Acute (3) Bradycardia Status: Chronic
--- NOTE | 2017-09-02 23:56 | CON ---
CARDIOLOGY CONSULTATION REASON FOR CONSULTATION: Sinus bradycardia. HISTORY OF PRESENT ILLNESS: The patient is a 57-year-old male, who has history of recurrent syncope. He underwent an event monitor implant some close to three years ago. Apparently, the patient followed recovery room nurse, and the patient does report syncopal episodes every few months. The patient presents because of left upper quadrant pain as well as nausea and vomiting. The patient did report vomiting of blood-streaked vomitus. The patient denies any melena. The patient denies taking any aspirin or nonsteroidal anti-inflammatory agents at home. SOCIAL HISTORY: The patient is a smoker. MEDICATIONS: Aspirin 81 mg once a day, Crestor 20 mg once a day, Lovenox 40 mg subcutaneously once a day, morphine sulfate 2 mg intravenously q.4 hours p.r.n. for pain, Protonix 40 mg intravenously once a day, Zofran 4 mg intravenously q.4 hours p.r.n. REVIEW OF SYSTEMS: No recent syncope, except few months ago. No fever or chills. No retrosternal chest pain. PHYSICAL EXAMINATION: GENERAL: The patient is an elderly male who does not appear to be in any distress. VITAL SIGNS: Blood pressure 125/65, heart rate 61, temperature 97.3, respirations 20. HEENT: Normocephalic. CHEST: Clear. HEART: S1 and S2, regular. ABDOMEN: Mild left upper quadrant tenderness. EXTREMITIES: No edema. LABORATORY DATA: SMA-7 within normal limits. Three sets of troponins are negative. TSH level is within normal limits. Hemoglobin, hematocrit, and white count and platelet count are within normal limits. Urine toxin is positive for opiates. EKG revealed sinus bradycardia at the rate of 52. Abdominopelvic CT scan revealed moderate constipation. ASSESSMENT: 1. Abdominal pain with nausea and vomiting. No clinical evidence of pancreatitis. 2. History of syncope, an episode every few months. The patient has baseline sinus bradycardia. RECOMMENDATIONS: Discontinue aspirin and Lovenox for now. GI evaluation is recommended. I will also request Dr. Bermudez's electrophysiology evaluation for removal of the event monitor and its analysis. Miguelito Bal MD [facility] # [id number]
[2017-09-03] MEDS: POLYETHYLENE GLYCOL 3350 17 GM/Dose PACKET PO SCH (09:55)
--- NOTE | 2017-09-03 17:58 | PN ---
LOCATION: [facility], bed B. SUBJECTIVE: With complaint of generalized weakness and malaise as well as mild headache and constipation, despite currently giving medication. No report of active bleeding, but the patient reported hematemesis 2 days prior to his admission. The entire chart is reviewed including but not limited to the most recent lab and radiology study results, current and previous medication list. Today's lab is still pending, but cancer markers reported to be normal as well as serum lipase level. PHYSICAL EXAMINATION: GENERAL: A 57 years old male, awake, alert, oriented, who was seen initially for GI consultation on 09/02/2017, as requested by the admitting M.D. VITAL SIGNS: The patient is afebrile with low heart rate of 48, respiratory rate 18-20 with blood pressure of 110/72. HEENT: Show pale, dry oral mucous membrane. Nonicteric sclerae. LUNGS: Few scattered crepitation, decreased air entry at bases. HEART: Positive S1 and S2 with bradycardia. ABDOMEN: Soft with mild distention and mild generalized tenderness. No mass or organomegaly. No rebound tenderness or guarding. RECTAL: Deferred due to the patient's cardiac status. EXTREMITIES: Without significant clubbing, cyanosis, or edema. NEUROLOGIC: No reported neurological deficits. IMPRESSION: 1. Reported hematemesis recently, but with normal H and H since admission. 2. Bradycardia was reported, syncopal episode or near syncopal episode. 3. Change of bowel movement habit of unclear etiology. 4. Reported past medical history of cardiac arrhythmias. SUGGESTIONS: 1. Continue current management. 2. Follow up H and H. 3. Proton pump inhibitors. 4. Endoscopic evaluation of the GI tract only when the patient is more stable clinically. Zayra Acosta MD cc: Patient chart.
--- NOTE | 2017-09-03 20:06 | PN ---
SUBJECTIVE: The patient denies any dizziness. He is still in sinus bradycardia in the 40s. He was evaluated by Dr. Bermudez yesterday. PHYSICAL EXAMINATION: VITAL SIGNS: Blood pressure 115/75, heart rate 43, temperature 97.7, respirations 17. HEENT: Normocephalic. CHEST: Clear. HEART: S1 and S2 regular. ABDOMEN: Soft. EXTREMITIES: No edema. LABORATORY DATA: According to electrophysiology evaluation, the bradycardia is likely a vagal response to vomiting and/or abdominal pain via a visceral reflex. Telemetry showed periods of bradycardia in 30s. Examination was unremarkable. A 12-lead EKG was remarkable. The echo showed mild aortic incompetence. There is no suggestion that abdominal pain reflects coronary arterial disease. The prior history of syncope is of concern. Bradycardia is of unclear significance and the plan is to interrogate the loop recorder. ASSESSMENT: 1. Sinus bradycardia. 2. History of recurrent syncope. 3. Abdominal discomfort. RECOMMENDATIONS: Case was discussed with primary physician. Continue Crestor, IV Protonix and p.r.n. IV Zofran. Awaiting loop recorder analysis. Miguelito Bal MD
[2017-09-03 20:36] LABS: TROPONIN I 0.019 ng/mL (0.00-0.120)
--- NOTE | 2017-09-03 23:11 | CP.PCM.PN ---
Subjective - Date & Time of Evaluation Date of Evaluation: 09/03/17 Time of Evaluation: 02:10 - Subjective Subjective: Pt is seen and evaluted, is still bradycardic, on telemetry monitoring Objective - Vital Signs/Intake and Output Vital Signs (last 24 hours): Temp Pulse Resp BP Pulse Ox 98.0 F 44 L 20 126/80 98 09/03/17 15:15 09/03/17 18:00 09/03/17 15:15 09/03/17 15:15 09/03/17 15:15 Intake and Output: 09/03/17 09/04/17 18:59 06:59 Intake Total 500 Balance 500 - Medications Medications: Current Medications Morphine Sulfate (Morphine) 2 mg IVP Q4 PRN PRN Reason: Pain, moderate (4-7) Ondansetron HCl (Zofran Inj) 4 mg IVP Q4 PRN PRN Reason: Nausea/vomitting Pantoprazole Sodium (Protonix Inj) 40 mg IVP DAILY [facility] Last Admin: 09/03/17 09:55 Dose: 40 mg Polyethylene Glycol (Miralax) 17 gm PO DAILY [facility] Last Admin: 09/03/17 09:55 Dose: 17 gm Rosuvastatin Calcium (Crestor) 20 mg PO HS [facility] Last Admin: 09/03/17 22:38 Dose: 20 mg - Labs Labs: 09/01/17 14:53 09/01/17 14:53 PT 12.2 SECONDS (9.7-12.2) 09/02/17 19:57 INR 1.1 09/02/17 19:57 APTT 38 SECONDS (21-34) H 09/02/17 19:57 - Constitutional Appears: No Acute Distress - Head Exam Head Exam: ATRAUMATIC, NORMAL INSPECTION, NORMOCEPHALIC - Eye Exam Eye Exam: EOMI, Normal appearance, PERRL Pupil Exam: NORMAL ACCOMODATION, PERRL - Respiratory Exam Respiratory Exam: Clear to Ausculation Bilateral, NORMAL BREATHING PATTERN - Cardiovascular Exam Cardiovascular Exam: REGULAR RHYTHM, +S1, +S2. absent: Murmur - GI/Abdominal Exam GI & Abdominal Exam: Soft, Normal Bowel Sounds. absent: Tenderness Assessment and Plan (1) Abdominal pain Status: Acute (2) Chest pain Status: Acute (3) Bradycardia Status: Chronic
[2017-09-04] MEDS: POLYETHYLENE GLYCOL 3350 17 GM/Dose PACKET PO SCH (09:48)
--- NOTE | 2017-09-04 10:37 | PN ---
DATE: LOCATION: [address] [place] [address] B. SUBJECTIVE: This is a 57 years old male seen and examined in rounds without significant clinical changes, but reported bradycardia. No reported nausea or vomiting or active bleeding. The entire chart is reviewed including but not limited to the most recent lab and radiology study results, current and previous medical list, current and previous medical events. The patient is seen by the technical sales consultant on the case and the case discussed with the staff at length. No official lab results today, but the latest CBC reported to be normal with normal total creatine kinase and normal CK-MB. Troponin level had been normal. CA 19-9 antigen and CEA reported to be normal. PHYSICAL EXAMINATION: GENERAL: A 57-year-old male, appeared to be awake, alert, oriented. VITAL SIGNS: Afebrile with reported heart rate of 46, blood pressure 110/56 with respiratory rate of 20, complaining of some abdominal pain, postprandial abdominal distention. HEENT: Within normal limit. LUNGS: Clear breathing sounds are present bilaterally. HEART: Positive S1 and S2 with low rate. ABDOMEN: Soft. Bowel sounds are present with slight generalized tenderness and mild distention. No mass or organomegaly. No rebound tenderness or guarding. EXTREMITIES: Without significant clubbing, cyanosis or edema. NEUROLOGIC: No reported new focal neurological deficits, sensory or motor. IMPRESSION: 1. Recent history of reported hematemesis, none since the admission. 2. Bradycardia, for full Cardiology reevaluation. 3. Recent change of bowel movement habit with constipation, gradually improving. SUGGESTION: 1. Agree with your plan. 2. Colace 1 tablet 3 times a day. 3. The patient may need endoscopic evaluation of the GI tract only when he is more stable clinically. Further recommendation to follow. Zayra Acosta MD
--- NOTE | 2017-09-04 16:28 | PN ---
SUBJECTIVE: The patient did experience dizziness yesterday. His heart rate has been in the 40s, except when he sleeps, it was reported to be in the upper 30s. PHYSICAL EXAMINATION: VITAL SIGNS: Blood pressure 115/67, heart rate 42, temperature 97.6, respirations 20. HEENT: Normocephalic. CHEST: Clear. HEART: S1 and S2 regular. ABDOMEN: Soft. EXTREMITIES: No edema. ASSESSMENT: 1. Symptomatic sinus bradycardia. 2. Abdominal pain and constipation. RECOMMENDATIONS: Continue current Crestor, IV Protonix and IV Zofran p.r.n., and the patient is awaiting loop recorder analysis. Miguelito Bal MD
--- NOTE | 2017-09-04 19:40 | CP.PCM.PN ---
Subjective - Date & Time of Evaluation Date of Evaluation: 09/04/17 Time of Evaluation: 19:00 - Subjective Subjective: Pt seen and examined at bedside, he is on telemetry pa, remains bradycardic, is waiting for EPS Objective - Vital Signs/Intake and Output Vital Signs (last 24 hours): Temp Pulse Resp BP Pulse Ox 97.5 F L 44 L 20 111/68 98 09/04/17 18:09 09/04/17 18:09 09/04/17 18:09 09/04/17 18:09 09/04/17 18:09 Intake and Output: 09/04/17 09/05/17 18:59 06:59 Intake Total 400 Balance 400 - Medications Medications: Current Medications Morphine Sulfate (Morphine) 2 mg IVP Q4 PRN PRN Reason: Pain, moderate (4-7) Ondansetron HCl (Zofran Inj) 4 mg IVP Q4 PRN PRN Reason: Nausea/vomitting Last Admin: 09/04/17 11:35 Dose: 4 mg Pantoprazole Sodium (Protonix Inj) 40 mg IVP DAILY [facility] Last Admin: 09/04/17 09:48 Dose: 40 mg Polyethylene Glycol (Miralax) 17 gm PO DAILY [facility] Last Admin: 09/04/17 09:48 Dose: 17 gm Rosuvastatin Calcium (Crestor) 20 mg PO HS [facility] Last Admin: 09/03/17 22:38 Dose: 20 mg - Labs Labs: 09/01/17 14:53 09/01/17 14:53 PT 12.2 SECONDS (9.7-12.2) 09/02/17 19:57 INR 1.1 09/02/17 19:57 APTT 38 SECONDS (21-34) H 09/02/17 19:57 - Constitutional Appears: No Acute Distress - Head Exam Head Exam: ATRAUMATIC, NORMAL INSPECTION, NORMOCEPHALIC - Eye Exam Eye Exam: EOMI, Normal appearance, PERRL Pupil Exam: NORMAL ACCOMODATION, PERRL - ENT Exam ENT Exam: Mucous Membranes Moist, Normal Exam - Respiratory Exam Respiratory Exam: Clear to Ausculation Bilateral, NORMAL BREATHING PATTERN - Cardiovascular Exam Cardiovascular Exam: Bradycardia, +S1, +S2 - GI/Abdominal Exam GI & Abdominal Exam: Soft, Normal Bowel Sounds. absent: Tenderness - Rectal Exam Rectal Exam: Deferred Assessment and Plan (1) Abdominal pain Status: Acute (2) Chest pain Status: Acute (3) Bradycardia Status: Chronic
[2017-09-05] MEDS: POLYETHYLENE GLYCOL 3350 17 GM/Dose PACKET PO SCH (10:45)
--- NOTE | 2017-09-05 15:29 | PN ---
DATE: LOCATION: [address] [place] [address] B. SUBJECTIVE: This is a 57 years old male seen and examined early in rounds without significant clinical changes. No reported active bleeding, but intermittent periods of abdominal discomfort, still with periods of bradycardia. Today's lab results still pending and the latest troponin level was reported to be normal. PHYSICAL EXAMINATION: GENERAL: A 57 years old male. VITAL SIGNS: Afebrile, with pulse of 48, respiratory rate 20 to 22, blood pressure 106/64. HEENT: Showed pale, dry oral mucoid membrane, nonicteric sclerae. LUNGS: Few scattered crepitation. Decreased air entry at bases. HEART: Positive S1 and S2 with bradycardia. ABDOMEN: Soft, normoactive bowel sounds are present. No mass or organomegaly. No rebound tenderness or guarding. EXTREMITIES: Without significant clubbing, cyanosis or edema. NEUROLOGIC: No reported neurological deficit, sensory or motor. IMPRESSION: 1. Symptomatic sinus bradycardia, the patient will call Cardiology for evaluation. 2. Change of bowel movement habit to severe constipation of unclear etiology. 3. Recent history of reported hematemesis, none since admission. SUGGESTIONS: 1. Agree with your plan. 2. Follow up cancer marker. 3. Sectional abdominal and pelvic CAT scan to be reviewed with radiology staff. 4. Further recommendation to follow and endoscopic evaluation of GI tract will be kept in mind only when the patient is more stable clinically. Zayra Acosta MD
--- NOTE | 2017-09-05 18:08 | PN ---
SUBJECTIVE: The patient did report mild dizziness. Abdominal pain has improved. PHYSICAL EXAMINATION: VITAL SIGNS: Blood pressure 116/70, heart rate 52, temperature 97.3, respirations 20. HEENT: Normocephalic. CHEST: Clear. HEART: S1 and S2 regular. EXTREMITIES: No edema. ASSESSMENT: 1. Sinus bradycardia. 2. Dizziness. 3. Abdominal pain on admission. RECOMMENDATIONS: Continue current Crestor and IV Protonix as well as p.r.n. IV Zofran. Awaiting loop recorder analysis. Miguelito Bal MD
--- NOTE | 2017-09-05 21:26 | CARD ---
APPROVED REPORT EXAM: Two-dimensional and M-mode echocardiogram with Doppler and color Doppler. Other Information Quality : GoodRhythm : Bradycardia INDICATION Cardiac Disease: CAD Syncope 2D DIMENSIONS IVSd1.0 (0.7-1.1cm)LVDd4.8 (3.9-5.9cm) PWd0.6 (0.7-1.1cm)LVDs3.2 (2.5-4.0cm) FS (%) 34.9 %LVEF (%)64.1 (>50%) M-Mode DIMENSIONS RVDd2.32 (2.1-3.2cm)Left Atrium (MM)3.81 (2.5-4.0cm) IVSd0.92 (0.7-1.1cm)Aortic Root2.68 (2.2-3.7cm) LVDd4.83 (4.0-5.6cm)Aortic Cusp Exc.1.98 (1.5-2.0cm) PWd0.96 (0.7-1.1cm)FS (%) 33 % LVDs3.25 (2.0-3.8cm)LVEF (%)61 (>50%) Mitral Valve MV E Hewjgvjj98.7cm/sMV A Cqfcdfbl02.9cm/sE/A ratio1.3 TDI E/Lateral E'0.0E/Medial E'0.0 Tricuspid Valve TR Peak [id number]/sTR Peak [id number] LEFT VENTRICLE The left ventricle is normal size. There is normal left ventricular wall thickness. The left ventricular function is normal. The left ventricular ejection fraction is within the normal range. No regional wall motion abnormalities noted. The left ventricular diastolic function is normal. No left ventricle thrombus noted on this study. There is no ventricular septal defect visualized. There is no left ventricular aneurysm. There is no mass noted in the left ventricle. RIGHT VENTRICLE The right ventricle is normal size. There is normal right ventricular wall thickness. The right ventricular systolic function is normal. ATRIA The left atrium size is normal. The right atrium size is normal. The interatrial septum is intact with no evidence for an atrial septal defect. AORTIC VALVE The aortic valve is normal in structure and function. There is mild aortic regurgitation. There is no aortic valvular stenosis. There is no aortic valvular vegetation. MITRAL VALVE The mitral valve is normal in structure and function. There is no evidence of mitral valve prolapse. There is no mitral valve stenosis. There is no mitral valve regurgitation noted. TRICUSPID VALVE The tricuspid valve is normal in structure and function. There is mild tricuspid regurgitation. There is no tricuspid valve prolapse or vegetation. There is no tricuspid valve stenosis. PULMONIC VALVE The pulmonary valve is normal in structure and function. There is no pulmonic valvular regurgitation. There is no pulmonic valvular stenosis. GREAT VESSELS The aortic root is normal in size. The ascending aorta is normal in size. The pulmonary artery is normal. The IVC is normal in size and collapses >50% with inspiration. PERICARDIAL EFFUSION The pericardium appears normal. There is no pleural effusion. <Conclusion> The left ventricular ejection fraction is within the normal range. The left ventricular diastolic function is normal. There is mild aortic regurgitation. There is mild tricuspid regurgitation.
--- NOTE | 2017-09-05 23:31 | CP.PCM.PN ---
Subjective - Date & Time of Evaluation Date of Evaluation: 09/05/17 Time of Evaluation: 19:00 - Subjective Subjective: Pt seen and examined at bedside Objective - Vital Signs/Intake and Output Vital Signs (last 24 hours): Temp Pulse Resp BP Pulse Ox 97.3 F L 52 L 20 116/70 97 09/05/17 15:30 09/05/17 18:00 09/05/17 15:30 09/05/17 15:30 09/05/17 15:30 Intake and Output: 09/05/17 09/06/17 18:59 06:59 Intake Total 300 Balance 300 - Medications Medications: Current Medications Ondansetron HCl (Zofran Inj) 4 mg IVP Q4 PRN PRN Reason: Nausea/vomitting Last Admin: 09/04/17 11:35 Dose: 4 mg Pantoprazole Sodium (Protonix Inj) 40 mg IVP DAILY [facility] Last Admin: 09/05/17 10:45 Dose: 40 mg Polyethylene Glycol (Miralax) 17 gm PO DAILY [facility] Last Admin: 09/05/17 10:45 Dose: 17 gm Rosuvastatin Calcium (Crestor) 20 mg PO HS [facility] Last Admin: 09/05/17 21:45 Dose: 20 mg - Labs Labs: 09/01/17 14:53 09/01/17 14:53 PT 12.2 SECONDS (9.7-12.2) 09/02/17 19:57 INR 1.1 09/02/17 19:57 APTT 38 SECONDS (21-34) H 09/02/17 19:57 Assessment and Plan (1) Abdominal pain Status: Acute (2) Chest pain Status: Acute (3) Bradycardia Status: Chronic
[2017-09-06] MEDS: POLYETHYLENE GLYCOL 3350 17 GM/Dose PACKET PO SCH (10:52)
--- NOTE | 2017-09-06 18:03 | PN ---
SUBJECTIVE: The patient denies any dizziness and no abdominal pain. PHYSICAL EXAMINATION: VITAL SIGNS: Blood pressure 111/53, heart rate 50, temperature 97.6, respirations 20. His lowest heart rate this morning was 41. HEENT: Normocephalic. CHEST: Clear. HEART: S1 and S2 regular. EXTREMITIES: No edema. ASSESSMENT: 1. Sinus bradycardia. 2. Right upper quadrant pain on admission. RECOMMENDATIONS: Continue current Crestor, IV Protonix and p.r.n. Zofran. I did review Dr. Walters's evaluation which is to follow cancer marker and reviewed the CT scan with the radiologist with the endoscopic evaluation to be kept in mind when the patient is more clinically stable. The patient was evaluated by Dr. Bermudez today and loop recorder analysis is still pending. Miguelito Bal MD
--- NOTE | 2017-09-06 23:13 | CP.PCM.PN ---
Subjective - Date & Time of Evaluation Date of Evaluation: 09/06/17 Time of Evaluation: 09:20 - Subjective Subjective: Pt was seen and evaluated at bedside this morning Objective - Vital Signs/Intake and Output Vital Signs (last 24 hours): Temp Pulse Resp BP Pulse Ox 98 F 54 L 18 126/77 98 09/06/17 16:32 09/06/17 16:32 09/06/17 16:32 09/06/17 16:32 09/06/17 16:32 - Medications Medications: Current Medications Ondansetron HCl (Zofran Inj) 4 mg IVP Q4 PRN PRN Reason: Nausea/vomitting Last Admin: 09/04/17 11:35 Dose: 4 mg Pantoprazole Sodium (Protonix Inj) 40 mg IVP DAILY [facility] Last Admin: 09/06/17 10:52 Dose: 40 mg Polyethylene Glycol (Miralax) 17 gm PO DAILY [facility] Last Admin: 09/06/17 10:52 Dose: 17 gm Rosuvastatin Calcium (Crestor) 20 mg PO HS [facility] Last Admin: 09/06/17 21:52 Dose: 20 mg - Labs Labs: 09/01/17 14:53 09/01/17 14:53 PT 12.2 SECONDS (9.7-12.2) 09/02/17 19:57 INR 1.1 09/02/17 19:57 APTT 38 SECONDS (21-34) H 09/02/17 19:57 Assessment and Plan (1) Abdominal pain Status: Acute (2) Chest pain Status: Acute (3) Bradycardia Status: Chronic
[2017-09-07 08:27] VITALS: O2SAT 97
[2017-09-07] MEDS: POLYETHYLENE GLYCOL 3350 17 GM/Dose PACKET PO SCH (09:54)
--- NOTE | 2017-09-07 14:14 | CP.PCM.PN ---
Subjective - Date & Time of Evaluation Date of Evaluation: 09/07/17 Time of Evaluation: 11:35 - Subjective Subjective: Patient seen and examined today awake, alert, ox3, denies any chest pain, sob, dizziness, abdominal pain, N/V , + BM HR - BRADYCARDIA- no significant changes since admission HR between 45-55 patient asymptomatic loop recorder interrogated by medric Objective - Vital Signs/Intake and Output Vital Signs (last 24 hours): Temp Pulse Resp BP Pulse Ox 97.7 F 45 L 20 103/58 L 97 09/07/17 08:26 09/07/17 08:26 09/07/17 08:26 09/07/17 08:26 09/07/17 08:26 - Medications Medications: Current Medications Ondansetron HCl (Zofran Inj) 4 mg IVP Q4 PRN PRN Reason: Nausea/vomitting Last Admin: 09/04/17 11:35 Dose: 4 mg Pantoprazole Sodium (Protonix Inj) 40 mg IVP DAILY [facility] 234 BEDS AT [facility] Last Admin: 09/07/17 09:54 Dose: 40 mg Polyethylene Glycol (Miralax) 17 gm PO DAILY COUNTS INCLUDE 234 BEDS AT [facility] Last Admin: 09/07/17 09:54 Dose: 17 gm Rosuvastatin Calcium (Crestor) 20 mg PO HS COUNTS INCLUDE 234 BEDS AT [facility] Last Admin: 09/06/17 21:52 Dose: 20 mg - Labs Labs: 09/01/17 14:53 09/01/17 14:53 PT 12.2 SECONDS (9.7-12.2) 09/02/17 19:57 INR 1.1 09/02/17 19:57 APTT 38 SECONDS (21-34) H 09/02/17 19:57 - Constitutional Appears: Well, No Acute Distress - Respiratory Exam Respiratory Exam: Clear to Ausculation Bilateral, NORMAL BREATHING PATTERN - Cardiovascular Exam Cardiovascular Exam: Bradycardia, REGULAR RHYTHM, +S1, +S2 Assessment and Plan - Assessment and Plan (Free Text) Assessment: A/P 57 yr old male admitted for abdominal pain and bradycardia HR remains stable - between 45-55 Dr. Bermudez consulted for bradycardia and pt has loop recorder placed 2 yrs ago and no follow up done for 2 yrs , loop recorder interrogated by medric CT scan abdomen- negative except for constipation d/W Dr. Bermudez , cleared for discharge home from EP standpoint and f/u with Dr. Bermudez office in 1 week D/W Dr. darling, stable for discharge home today and f/u wiht Dr. darling office in 1 week Discharge plan discussed with patient in details regarding the importance of following up wiht Dr. Bermudez , who understands an d agrees with plan
[2017-09-07 15:20] VITALS: BP 113/69; PULSE 56; RESP 16; TEMP 97.3
--- NOTE | 2017-09-07 16:05 | PN ---
DATE: LOCATION: [address] [place] [address] B. SUBJECTIVE: This is a 57 years old male seen and examined in rounds without significant clinical changes or reported active bleeding, with a complaint of intermittent abdominal pain and discomfort. No reported dizziness, headache, but nausea and no vomiting with mild dyspepsia. The patient is still on sinus bradycardia. The entire chart is reviewed including, but not limited to the most recent lab and radiology study results, current and the previous medication list, current and the previous medical events and today's lab results still pending. PHYSICAL EXAMINATION: GENERAL: A 57 years old male. VITAL SIGNS: Afebrile with pulse of 44, respiratory rate 20 to 22, and blood pressure 100/60. HEENT: Showed pale, dry oral mucoid membrane. Nonicteric sclerae. LUNGS: Few scattered crepitation. Decreased air entry at bases. HEART: Positive S1 and S2. ABDOMEN: Soft with slight generalized tenderness. No mass or organomegaly. No rebound tenderness or guarding. EXTREMITIES: Without edema, clubbing, or cyanosis. NEUROLOGIC: No reported new neurological deficits, sensory or motor and no reported focal deficits. IMPRESSION: 1. Sinus bradycardia. 2. Re-exacerbation of peptic ulcer disease. 3. Recent change of bowel movement with constipation. 4. Recent history of hematemesis, as reported, none since admission. SUGGESTIONS: 1. Continue current management. 2. Lactulose 30 mL p.o. twice a day. 3. tab one twice a day p.r.n. 4. Further recommendation to follow. Zayra Acosta MD 09/07/2017 12:35:55
--- NOTE | 2017-09-07 23:20 | CP.PCM.DIS ---
Provider - Provider Date of Admission: 09/01/17 18:00 Attending physician: Joe Hendrix MD Diagnosis - Discharge Diagnosis (1) Abdominal pain Status: Acute (2) Chest pain Status: Acute (3) Bradycardia Status: Chronic Hospital Course - Lab Results Lab Results: Most Recent Lab Values WBC 4.9 K/uL (4.8-10.8) 09/01/17 14:53 RBC 5.20 Mil/uL (4.40-5.90) 09/01/17 14:53 Hgb 14.7 g/dL (12.0-18.0) 09/01/17 14:53 Hct 44.8 % (35.0-51.0) 09/01/17 14:53 MCV 86.2 fL (80.0-94.0) 09/01/17 14:53 MCH 28.2 pg (27.0-31.0) 09/01/17 14:53 MCHC 32.7 g/dL (33.0-37.0) L 09/01/17 14:53 RDW 13.8 % (11.5-14.5) 09/01/17 14:53 Plt Count 196 K/uL (130-400) 09/01/17 14:53 MPV 9.1 fL (7.2-11.7) 09/01/17 14:53 Neut % (Auto) 49.2 % (50.0-75.0) L 09/01/17 14:53 Lymph % (Auto) 33.2 % (20.0-40.0) 09/01/17 14:53 Rincon % (Auto) 14.6 % (0.0-10.0) H 09/01/17 14:53 Eos % (Auto) 2.3 % (0.0-4.0) 09/01/17 14:53 Baso % (Auto) 0.7 % (0.0-2.0) 09/01/17 14:53 Neut # 2.4 K/uL (1.8-7.0) 09/01/17 14:53 Lymph # 1.6 K/uL (1.0-4.3) 09/01/17 14:53 Rincon # 0.7 K/uL (0.0-0.8) 09/01/17 14:53 Eos # 0.1 K/uL (0.0-0.7) 09/01/17 14:53 Baso # 0.0 K/uL (0.0-0.2) 09/01/17 14:53 PT 12.2 SECONDS (9.7-12.2) 09/02/17 19:57 INR 1.1 09/02/17 19:57 APTT 38 SECONDS (21-34) H 09/02/17 19:57 Sodium 138 mmol/L (132-148) 09/01/17 14:53 Potassium 3.9 mmol/L (3.6-5.2) 09/01/17 14:53 Chloride 103 mmol/L (98-107) 09/01/17 14:53 Carbon Dioxide 28 mmol/L (22-30) 09/01/17 14:53 Anion Gap 12 (10-20) 09/01/17 14:53 BUN 14 mg/dL (9-20) 09/01/17 14:53 Creatinine 0.8 mg/dL (0.8-1.5) 09/01/17 14:53 Est GFR ( Amer) > 60 09/01/17 14:53 Est GFR (Non-Af Amer) > 60 09/01/17 14:53 Random Glucose 78 mg/dL (75-110) 09/01/17 14:53 Lactic Acid 0.9 mmol/L (0.7-2.1) 09/01/17 15:07 Calcium 8.9 mg/dl (8.6-10.4) 09/01/17 14:53 Total Bilirubin 0.7 mg/dL (0.2-1.3) 09/01/17 14:53 AST 30 U/L (17-59) 09/01/17 14:53 ALT 43 U/L (21-72) 09/01/17 14:53 Alkaline Phosphatase 99 U/L (38-126) 09/01/17 14:53 Total Creatine Kinase 86 U/L (55-170) 09/03/17 19:50 CK-MB (Mass) 1.04 ng/mL (0.0-3.38) 09/03/17 19:50 Troponin I 0.0190 ng/mL (0.00-0.120) 09/03/17 19:50 Troponin I, Quant 0.0270 ng/mL (0.00-0.120) 09/02/17 18:25 Total Protein 8.9 g/dL (6.3-8.3) H 09/01/17 14:53 Albumin 4.2 g/dL (3.5-5.0) 09/01/17 14:53 Globulin 4.7 gm/dL (2.2-3.9) H 09/01/17 14:53 Albumin/Globulin Ratio 0.9 (1.0-2.1) L 09/01/17 14:53 Lipase 41 U/L (23-300) 09/01/17 14:53 Carcinoembryonic Ag 1.7 ng/mL (0-3.0) 09/02/17 19:57 CA 19-9 Antigen 4.7 U/mL (0-37) 09/02/17 19:57 TSH 3rd Generation 1.91 mIU/L (0.46-4.68) 09/02/17 07:39 Urine Opiates Screen Positive (NEGATIVE) H 09/02/17 06:28 Urine Methadone Screen Negative (NEGATIVE) 09/02/17 06:28 Ur Barbiturates Screen Negative (NEGATIVE) 09/02/17 06:28 Ur Phencyclidine Scrn Negative (NEGATIVE) 09/02/17 06:28 Ur Amphetamines Screen Negative (NEGATIVE) 09/02/17 06:28 U Benzodiazepines Scrn Negative (NEGATIVE) 09/02/17 06:28 U Oth Cocaine Metabols Negative (NEGATIVE) 09/02/17 06:28 U Cannabinoids Screen Negative (NEGATIVE) 09/02/17 06:28 - Hospital Course Hospital Course: A/P 57 yr old male admitted for abdominal pain and bradycardia HR remains stable - between 45-55 Dr. Bermudez consulted for bradycardia and pt has loop recorder placed 2 yrs ago and no follow up done for 2 yrs , loop recorder interrogated by medric CT scan abdomen- negative except for constipation d/W Dr. Bermudez , cleared for discharge home from EP standpoint and f/u with Dr. Bermudez office in 1 week , stable for discharge home today and f/u wiht me in office in 1 week Discharge plan discussed with patient in details regarding the importance of following up wiht Dr. Bermudez , who understands an d agrees with plan Discharge Exam - Head Exam Head Exam: ATRAUMATIC, NORMAL INSPECTION, NORMOCEPHALIC Discharge Plan - Discharge Medications Prescriptions: Pantoprazole [Protonix] 40 mg PO DAILY #15 ect - Follow Up Plan Condition: STABLE Disposition: HOME/ ROUTINE Instructions: Pantoprazole (By mouth), Chest Pain (DC), Heart Healthy Diet (DC) , Bradycardia (DC) Additional Instructions: Please f/u with Dr. Hendrix office in 1 week Please f/u with Dr. Bermudez office in 1 week please call and make appointment [phone] PLEASE RIDE ATTENDANT MEDS FROM [facility] Referrals: Cristy Bermudez MD [Staff Provider] - Joe Hendrix MD [Staff Provider] -
== END 2017-09-07 15:29 | disposition home or self-care (01) | DRG 392 ==
LOC: C.ER 12:22 → C.9E 18:00 → C.6T 20:06
PROVIDERS: ADMIT Internal Medicine; ATTEND Internal Medicine
DX: K59.00 Constipation, unspecified (principal); F17.210 Nicotine dependence, cigarettes, uncomplicated; R10.11 Right upper quadrant pain; Z68.35 Body mass index [BMI] 35.0-35.9, adult

== ENCOUNTER 2019-01-30 14:44 | Observation (INO) | payer OTHER ==
[2019-01-30 14:44] VITALS: BMI 36.1
--- NOTE | 2019-01-30 15:44 | C.PDOC ---
History Of Present Illness 58 year old male presents to ED with complaint of intermittent left-sided chest pain that began 2 days ago. Patient describes the pain as sharp, non-pleuritic, and it radiates down the left arm. He also admits to non-productive cough and chills that began 2 days ago, but has since resolved. Patient also has episodes of lightheadedness and SOB at rest. He has a PMHx of sinus bradycardia, currently has a loop recorder that was inserted by Dr. Howe. He has no PMD/career based intervention coordinator. He denies palpitations, abdominal pain, nausea, vomiting, headache, dizziness. Time Seen by Provider: 01/30/19 15:20 Chief Complaint (Nursing): Chest Pain History Per: Patient History/Exam Limitations: no limitations Onset/Duration Of Symptoms: Days (2), Intermittent Episodes Current Symptoms Are (Timing): Still Present Quality: Sharp Associated Symptoms: denies: Nausea Modifying Factors: None Exacerbating Factors: None Alleviating Factors: None Past Medical History Reviewed: Historical Data, Nursing Documentation, Vital Signs Vital Signs: Last Vital Signs Temp 97.6 F 01/30/19 14:47 Pulse 67 01/30/19 14:47 Resp 18 01/30/19 14:47 BP 137/82 01/30/19 14:47 Pulse Ox 97 01/30/19 14:47 - Medical History PMH: Cardia Arrhythmia (Bradycardia) Surgical History: No Surg Hx Denies: Appendectomy, Cholecystectomy, Coronary Stent, Pacemaker - [facility] Procedures INSERT OF MONITOR DEV INTO CHEST SUBCU/FASCIA, PERC APPROACH (07/23/16) Family History: States: No Known Family Hx - Social History Hx Tobacco Use: Yes Hx Alcohol Use: Yes (socially) Hx Substance Use: No - Immunization History Hx Tetanus Toxoid Vaccination: No Hx Influenza Vaccination: No Hx Pneumococcal Vaccination: No Review Of Systems Cardiovascular: Positive for: Chest Pain (left-sided). Negative for: Palpitations Respiratory: Negative for: Shortness of Breath, Pleuritic Pain Gastrointestinal: Negative for: Nausea, Vomiting, Abdominal Pain, Diarrhea Musculoskeletal: Positive for: Arm Pain (left arm) Neurological: Negative for: Weakness, Numbness Physical Exam - Physical Exam Appears: Well, Non-toxic, No Acute Distress Skin: Normal Color, Warm, Dry Head: Normacephalic Oral Mucosa: Moist Neck: Supple Cardiovascular: Rhythm Regular, No Murmur, Other (mildly bradycardic) Respiratory: Normal Breath Sounds, No Rales, No Rhonchi, No Wheezing Gastrointestinal/Abdominal: Normal Exam, Bowel Sounds, Soft, No Tenderness Extremity: Normal ROM, No Pedal Edema, No Deformity, No Swelling Pulses: Left Dorsalis Pedis: Normal, Right Dorsalis Pedis: Normal Neurological/Psych: Oriented x3, Normal Sensation Gait: Steady ED Course And Treatment - Laboratory Results Result Diagrams: 02/02/19 07:11 02/02/19 07:11 ECG: Interpreted By Me, Viewed By Me (NSR 67 bpm, normal axis, no acute ST/T wave changes) ECG Interpretation: Normal O2 Sat by Pulse Oximetry: 97 (RA) Pulse Ox Interpretation: Normal - Other Rad CXR X-Ray: Interpreted by Me, Viewed By Me Interpretation: IMPRESSION: No acute cardiopulmonary disease. Progress Note: Blood work, EKG, CXR ordered and reviewed. PO ASA given. - Physician Consult Information Physician Contacted: Jazmin Lei Outcome Of Conversation: Discussed patient with medicine youth probation officer, agrees with obs tele for chest pain, sinus bradycardia. Disposition - Disposition Disposition: HOSPITALIZED Disposition Time: 17:59 Condition: STABLE - Clinical Impression Clinical Impression: Sinus bradycardia, Chest pain - Scribe Statement The provider has reviewed the documentation as recorded by the Scribe (Payal Lyaton) All medical record entries made by the Scribe were at my direction and personally dictated by me. I have reviewed the chart and agree that the record accurately reflects my personal performance of the history, physical exam, medical decision making, and the department course for this patient. I have also personally directed, reviewed, and agree with the discharge instructions and disposition. Decision To Admit - Pt Status Changed To: Hospital Disposition Of: Observation - . Bed Request Type: Telemetry Admitting Physician: Jazmin Lei Patient Diagnosis: Chest pain, Sinus bradycardia
[2019-01-30 17:17] LABS: BASO # 0.1 K/uL (0.0-0.2); EOS # 0.1 K/uL (0.0-0.7); EOS % 1.7 % (0.0-4.0); HEMOGLOBIN 15.7 g/dL (12.0-18.0); LYMPH # 1.7 K/uL (1.0-4.3); LYMPH % 28.2 % (20.0-40.0); MEAN CELL VOLUME 89.3 fL (80.0-94.0); MEAN CORPUSCULAR HEMOGLOBIN 28.8 pg (27.0-31.0); MEAN CORPUSCULAR HGB CONC 32.3 g/dL (33.0-37.0); MONO # 0.9 K/uL (0.0-0.8); MONO % 15.6 % (0.0-10.0); NEUT # 3.2 K/uL (1.8-7.0); NEUT % 53.5 % (50.0-75.0); NRBC % 0.2 % (0.0-2.0); RBC 5.45 Mil/uL (4.40-5.90); RED CELL DISTRIBUTION WIDTH 14.1 % (11.5-14.5)
[2019-01-30 17:29] LABS: ALB/GLOB RATIO 1.1 (1.0-2.1); ALBUMIN 4.5 g/dL (3.5-5.0); BLOOD UREA NITROGEN 13 mg/dL (9-20); CALCIUM 10.1 mg/dl (8.6-10.4); GFR NON-AFRICAN AMERICAN > 60
[2019-01-30 17:37] LABS: ALT/SGPT 119 U/L (21-72); AST/SGOT 79 U/L (17-59)
[2019-01-30 17:41] LABS: B-TYPE NATRIURETIC PEPTIDE 61.2 pg/mL (0-900); CK-MB 1.16 ng/mL (0.0-3.38)
--- NOTE | 2019-01-30 17:46 | RAD ---
Date of service: 01/30/2019 HISTORY: Chest pain COMPARISON: Comparison made with prior chest radiograph 06/26/2018. TECHNIQUE: 1 view obtained. FINDINGS: LUNGS: No active pulmonary disease. PLEURA: No significant pleural effusion identified, no pneumothorax apparent. CARDIOVASCULAR: No aortic atherosclerotic calcification present. Heart appears mildly enlarged. Radiopaque monitor device overlies the left cardiac border. OSSEOUS STRUCTURES: No significant abnormalities. VISUALIZED UPPER ABDOMEN: Normal. OTHER FINDINGS: None. IMPRESSION: No acute cardiopulmonary disease.
[2019-01-31 03:07] LABS: CK-MB 1.03 ng/mL (0.0-3.38); TROPONIN I 0.012 ng/mL (0.00-0.120)
[2019-01-31 10:54] LABS: CK-MB 0.89 ng/mL (0.0-3.38)
[2019-01-31 11:05] LABS: ALB/GLOB RATIO 1.2 (1.0-2.1); ALBUMIN 4.1 g/dL (3.5-5.0); ALT/SGPT 115 U/L (21-72); AST/SGOT 75 U/L (17-59); BLOOD UREA NITROGEN 19 mg/dL (9-20); CALCIUM 9.9 mg/dl (8.6-10.4); GFR NON-AFRICAN AMERICAN > 60
--- NOTE | 2019-01-31 13:04 | CP.PCM.PN ---
Subjective - Date & Time of Evaluation Date of Evaluation: 01/31/19 Time of Evaluation: 13:01 - Subjective Subjective: CARDIOLOGY EVAL DONE. S. ALEXT WITH CHEST PAIN. H/O SIMILAR EPISODE IN THE PAST. Objective - Vital Signs/Intake and Output Vital Signs (last 24 hours): Temp Pulse Resp BP Pulse Ox 97.5 F L 42 L 18 109/67 96 01/31/19 07:05 01/31/19 08:00 01/31/19 07:05 01/31/19 07:05 01/31/19 07:05 - Medications Medications: Current Medications Aspirin (Aspirin Chewable) 81 mg PO DAILY COUNTS INCLUDE 234 BEDS AT [facility] Last Admin: 01/31/19 10:25 Dose: 81 mg Famotidine (Pepcid) 20 mg PO BID COUNTS INCLUDE 234 BEDS AT [facility] Heparin Sodium (Porcine) (Heparin) 5,000 units SC Q12 COUNTS INCLUDE 234 BEDS AT [facility] Last Admin: 01/31/19 10:25 Dose: 5,000 units - Labs Labs: 01/30/19 17:08 01/31/19 10:17 - Constitutional Appears: No Acute Distress - Eye Exam Eye Exam: EOMI, Normal appearance, PERRL Pupil Exam: NORMAL ACCOMODATION, PERRL - ENT Exam ENT Exam: Mucous Membranes Moist, Normal Exam - Respiratory Exam Respiratory Exam: Clear to Ausculation Bilateral, NORMAL BREATHING PATTERN - Cardiovascular Exam Cardiovascular Exam: REGULAR RHYTHM, +S1, +S2. absent: Murmur - GI/Abdominal Exam GI & Abdominal Exam: Soft, Normal Bowel Sounds. absent: Tenderness - Extremities Exam Extremities Exam: Full ROM, Normal Capillary Refill, Normal Inspection. absent: Joint Swelling, Pedal Edema - Back Exam Back Exam: NORMAL INSPECTION - Neurological Exam Neurological Exam: Alert, Awake, CN II-XII Intact, Normal Gait, Oriented x3 - Psychiatric Exam Psychiatric exam: Normal Affect, Normal Mood Assessment and Plan - Assessment and Plan (Free Text) Assessment: S.UVALDO AND CHEST PAIN. Plan: FOR ECHO, HOLTER AND CARDIAC CONSULT WITH DR. ISLAS. ? EP STUDY.
--- NOTE | 2019-01-31 14:41 | CP.PCM.CON ---
<KendaleveAliyah AlejandroJaz - Last Filed: 01/31/19 16:30> History of Present Illness - History of Present Illness History of Present Illness: Patient is a 58 year old male with a PMHx of sinus bradycardia that presented to the [facility] ED on 01/30 for left sided chest pain of 3 days duration. The patient describes his pain as pressure like, began 3 days ago and is localized to the left side of his chest with radiation to his left arm and neck. He rates the pain as a 9/10 at onset and says its been unremitting in nature until he was admitted to the hospital on 01/30. At the onset of the pain he experienced dizziness, palpitations, shortness of breath, fatigue, and nausea. His says his symptoms decreased since being in the hospital, but they are starting to worsen today. Patient states this isnt the first time that he has experienced these symptoms and states that he was hospitalized roughly 6 months ago (this time with a syncopal episode). Over the last year he has noticed he requires addition al pillows at night and has been waking up in the middle of the night coughing. He denies fevers, chills, headaches, dizziness, vision changes, hearing changes, dysphagia, odynophagia, palpitations, shortness of breath, coughing, wheezing, nausea, vomiting, diarrhea, dysuria, and weakness in upper and lower extremities. He currently admits to feeling lightheadeded, chest pain, and left arm pain. PMHx: Sinus bradycardia with loop recorder placement PSHx: Cardiac cath, loop recorder Hospitalizations: 6 months ago for similar symptoms (many previous admissions in the past for these symptoms) FMHx: Brother (60) has a pacemaker, brother (57) had a stroke, father (82) has heart problems (doesn't specify), mother (79) asthma and cancer Medications: OTC aspirin as needed Allergies: NKDA Social: 25 year smoking history (smoked 1ppd for 23 years and cut down to 1/2 ppd during these last 2 years), patient drinks several pints of beer and shots approximately 2-3 times per week and makes note of several binging sessions in the past (6-7 pints in one session), denies illicit drug use. Review of Systems - Constitutional Constitutional: Fatigue. absent: Headache - EENT Eyes: absent: Change in Vision Ears: Dizziness - Cardiovascular Cardiovascular: Chest Pain, Chest Pain at Rest, Pain Radiating to Arm/Neck/Jaw, Lightheadedness, Paroxysmal Nocturnal Dyspnea, Slow Heart Rate. absent: Dyspnea, Dyspnea on Exertion, Leg Edema - Respiratory Respiratory: absent: Cough, Dyspnea on Exertion, Pain with Coughing - Gastrointestinal Gastrointestinal: absent: Abdominal Pain, Constipation, Diarrhea, Nausea, Vomiting - Genitourinary Genitourinary: absent: Dysuria - Musculoskeletal Musculoskeletal: Radiating Pain into Limb (left arm) - Neurological Neurological: Dizziness. absent: Headaches, Loss of Vision, Syncope - Endocrine Endocrine: Fatigue, Palpitations Past Patient History - Infectious Disease Hx of Infectious Diseases: None - Past Medical History & Family History Past Medical History?: No - Past Social History Smoking Status: Light Smoker < 10 Cigarettes Daily - CARDIAC Hx Cardia Arrhythmia: Yes (Bradycardia) Hx Congestive Heart Failure: No Hx Hypercholesterolemia: No Hx Hypertension: No Hx Mitral Valve Prolapse: No Hx Pacemaker: No Hx Peripheral Edema: No - PULMONARY Hx Asthma: No Hx Bronchitis: No Hx Chronic Obstructive Pulmonary Disease (COPD): No Hx Emphysema: No Hx Pneumonia: No Hx Sleep Apnea: No - NEUROLOGICAL Hx Alzheimer's Disease: No Hx Dementia: No Hx Migraine: No Hx Parkinson's Disease: No Hx Seizures: No Hx Transient Ischemic Attacks (TIA): No - HEENT Hx HEENT Problems: No - RENAL Hx Chronic Kidney Disease: No Hx Kidney Stones: No - ENDOCRINE/METABOLIC Hx Hyperthyroidism: No Hx Hypothyroidism: No - HEMATOLOGICAL/ONCOLOGICAL Hx Anemia: No Hx Human Immunodeficiency Virus (HIV): No Hx Sickle Cell Disease: No - INTEGUMENTARY Hx Dermatological Problems: No - MUSCULOSKELETAL/RHEUMATOLOGICAL Hx Arthritis: No Hx Fractures: No Hx Osteoporosis: No - GASTROINTESTINAL Hx Crohn's Disease: No Hx Diverticulitis: No Hx Gall Bladder Disease: No Hx Pancreatitis: No - GENITOURINARY/GYNECOLOGICAL Hx Sexually Transmitted Disorders: No - PSYCHIATRIC Hx Anxiety: No Hx Bipolar Disorder: No Hx Depression: No Hx Paranoia: No Hx Post Traumatic Stress Disorder: No Hx Schizophrenia: No Hx Substance Use: No - SURGICAL HISTORY Hx Appendectomy: No Hx Cholecystectomy: No Hx Coronary Stent: No - ANESTHESIA Hx Anesthesia: No Hx Anesthesia Reactions: No Hx Malignant Hyperthermia: No Meds Allergies/Adverse Reactions: Allergies Allergy/AdvReac Type Severity Reaction Status Date / Time No Known Allergies Allergy Verified 06/26/18 02:29 - Medications Medications: Current Medications Aspirin (Aspirin Chewable) 81 mg PO DAILY [facility] Last Admin: 01/31/19 10:25 Dose: 81 mg Famotidine (Pepcid) 20 mg PO BID [facility] Heparin Sodium (Porcine) (Heparin) 5,000 units SC Q12 [facility] Last Admin: 01/31/19 10:25 Dose: 5,000 units Physical Exam - Constitutional Appears: Well, No Acute Distress - Head Exam Head Exam: ATRAUMATIC, NORMAL INSPECTION - Eye Exam Eye Exam: EOMI, Normal appearance - ENT Exam ENT Exam: Mucous Membranes Moist - Respiratory Exam Respiratory Exam: Clear to Auscultation Bilateral, NORMAL BREATHING PATTERN. absent: Rales, Rhonchi, Wheezes, Respiratory Distress - Cardiovascular Exam Cardiovascular Exam: Bradycardia, +S1, +S2. absent: Systolic Murmur - GI/Abdominal Exam GI & Abdominal Exam: Normal Bowel Sounds, Soft. absent: Distended, Firm, Guarding, Tenderness - Extremities Exam Extremities exam: Positive for: normal capillary refill, normal inspection, p edal pulses present. Negative for: pedal edema, tenderness - Neurological Exam Neurological exam: Alert, Oriented x3 - Psychiatric Exam Psychiatric exam: Normal Affect, Normal Mood - Skin Skin Exam: Dry, Normal Color, Warm Results - Vital Signs Recent Vital Signs: Last Vital Signs Temp 97.5 F L 01/31/19 07:05 Pulse 46 L 01/31/19 12:00 Resp 18 01/31/19 07:05 BP 109/67 01/31/19 07:05 Pulse Ox 96 01/31/19 07:05 - Labs Result Diagrams: 01/30/19 17:08 01/31/19 10:17 Labs: Laboratory Results - last 24 hr 01/30/19 01/30/19 01/31/19 17:08 17:08 02:26 WBC 6.0 RBC 5.45 Hgb 15.7 Hct 48.7 MCV 89.3 MCH 28.8 MCHC 32.3 L RDW 14.1 Plt Count 220 MPV 9.0 Neut % (Auto) 53.5 Lymph % (Auto) 28.2 Blanco % (Auto) 15.6 H Eos % (Auto) 1.7 Baso % (Auto) 1.0 Neut # (Auto) 3.2 Lymph # (Auto) 1.7 Blanco # (Auto) 0.9 H Eos # (Auto) 0.1 Baso # (Auto) 0.1 Sodium 139 Potassium 4.8 Chloride 104 Carbon Dioxide 27 Anion Gap 13 BUN 13 Creatinine 1.0 Est GFR ( Amer) > 60 Est GFR (Non-Af Amer) > 60 Random Glucose 82 Calcium 10.1 Total Bilirubin 0.8 AST 79 H ALT 119 H Alkaline Phosphatase 97 Total Creatine Kinase 134 129 CK-MB (Mass) 1.16 1.03 Troponin I < 0.0120 0.0120 NT-Pro-B Natriuret Pep 61.2 Total Protein 8.8 H Albumin 4.5 Globulin 4.2 H Albumin/Globulin Ratio 1.1 01/31/19 10:17 WBC RBC Hgb Hct MCV MCH MCHC RDW Plt Count MPV Neut % (Auto) Lymph % (Auto) Blanco % (Auto) Eos % (Auto) Baso % (Auto) Neut # (Auto) Lymph # (Auto) Blanco # (Auto) Eos # (Auto) Baso # (Auto) Sodium 139 Potassium 4.2 Chloride 105 Carbon Dioxide 27 Anion Gap 12 BUN 19 Creatinine 1.1 Est GFR ( Amer) > 60 Est GFR (Non-Af Amer) > 60 Random Glucose 126 H D Calcium 9.9 Total Bilirubin 0.6 AST 75 H ALT 115 H Alkaline Phosphatase 87 Total Creatine Kinase 109 CK-MB (Mass) 0.89 Troponin I < 0.0120 NT-Pro-B Natriuret Pep Total Protein 7.7 Albumin 4.1 Globulin 3.6 Albumin/Globulin Ratio 1.2 Assessment & Plan - Assessment and Plan (Free Text) Plan: Patient is a 58 year old male with a PMHx of sinus bradycardia that presented to the [facility] ED on 01/30 for left sided chest pain of 3 days duration. Bradycardia - Symptomatic - Hx of Loop recorder (previous admission in 06/2018 for similar complaints; was seen by EP who evaluated loop recorder. Baseline HR 40-50s per loop recorder and per EMR) - EKG at admission: NSR@67bpm - EKG (01/31): sinus sunny@40bpm; Twave inversions in II, III, aVF - Trops x3 negative - BNP wnl - ECHO: f/u - TSH/Free T4: f/u - Nuclear exercise stress test ordered for tomorrow - EP, Dr. Santana, consulted. Help appreciated Case discussed with Dr. Nate Justin, PGY2 <Benito Sullivan - Last Filed: 01/31/19 23:28> Meds - Medications Medications: Current Medications Aspirin (Aspirin Chewable) 81 mg PO DAILY [facility] Last Admin: 01/31/19 10:25 Dose: 81 mg Famotidine (Pepcid) 20 mg PO BID [facility] Last Admin: 01/31/19 17:22 Dose: 20 mg Heparin Sodium (Porcine) (Heparin) 5,000 units SC Q12 [facility] Last Admin: 01/31/19 21:31 Dose: 5,000 units Results - Vital Signs Recent Vital Signs: Last Vital Signs Temp 97.9 F 01/31/19 16:20 Pulse 43 L 01/31/19 21:23 Resp 18 01/31/19 21:23 BP 118/71 01/31/19 21:23 Pulse Ox 99 01/31/19 21:23 - Labs Result Diagrams: 01/30/19 17:08 01/31/19 10:17 Labs: Laboratory Results - last 24 hr 01/31/19 01/31/19 01/31/19 02:26 10:17 17:23 Sodium 139 Potassium 4.2 Chloride 105 Carbon Dioxide 27 Anion Gap 12 BUN 19 Creatinine 1.1 Est GFR ( Amer) > 60 Est GFR (Non-Af Amer) > 60 Random Glucose 126 H D Calcium 9.9 Total Bilirubin 0.6 AST 75 H ALT 115 H Alkaline Phosphatase 87 Total Creatine Kinase 129 109 CK-MB (Mass) 1.03 0.89 Troponin I 0.0120 < 0.0120 Total Protein 7.7 Albumin 4.1 Globulin 3.6 Albumin/Globulin Ratio 1.2 Free T4 TSH 3rd Generation 1.01 01/31/19 17:23 Sodium Potassium Chloride Carbon Dioxide Anion Gap BUN Creatinine Est GFR ( Amer) Est GFR (Non-Af Amer) Random Glucose Calcium Total Bilirubin AST ALT Alkaline Phosphatase Total Creatine Kinase CK-MB (Mass) Troponin I Total Protein Albumin Globulin Albumin/Globulin Ratio Free T4 1.00 TSH 3rd Generation Assessment & Plan - Assessment and Plan (Free Text) Plan: Patient seen and evaluated personally by me. Plan of care d/w the medical assistant ob gyn and as documented.
--- NOTE | 2019-01-31 23:34 | CON ---
DATE: 01/31/2019 CARDIOLOGY CONSULTATION HISTORY OF PRESENT ILLNESS: This is a 58-year-old male, came to the emergency room with complaint of intermittent left-sided chest pain that began two days ago. The patient also described the pain as sharp, non-pleuritic, and radiating down to the left arm. The patient complains of nonproductive cough and chills that began two days ago. The patient admits to lightheadedness and episode of shortness of breath at rest. REVIEW OF SYSTEMS: CARDIOVASCULAR SYSTEM: As mentioned above. RESPIRATORY SYSTEM: Negative for shortness of breath. GASTROINTESTINAL SYSTEM: Negative for nausea, vomiting, or abdominal pain. CENTRAL NERVOUS SYSTEM: No focal neurological complaints offered. EXTREMITIES: No edema of the legs. GENITOURINARY: No urinary complaints. PSYCHIATRIC: The patient is stable. All other systems are negative. PAST HISTORY: The patient had similar episode about two to three years ago and Dr. Ma treated him and had loop recorder implant placed. The patient has not been through any supervisor sample diet. MEDICATIONS: The patient is not on any medication. FAMILY HISTORY: No known inherited disease. SOCIAL HISTORY: Smoking present. Alcohol social. No IVDA. ALLERGIES: NO KNOWN ALLERGIES. PHYSICAL EXAMINATION: GENERAL: This is a 58-year-old male, alert, oriented, and comfortable. VITAL SIGNS: Temperature 97.6, pulse 67, respirations 18, blood pressure 137/82 mmHg, and pulse ox is 97% at room air. HEENT: Normal. NECK: JVP is flat. Carotid, no bruits. LUNGS: No rales. No wheezing. HEART: S1 and S2, normal. No gallop. No murmur. ABDOMEN: Soft, nontender. No organomegaly. CENTRAL NERVOUS SYSTEM: No focal neurological deficits. EXTREMITIES: No edema of the legs. LABORATORY DATA: On admission, CBC and BMP are within normal limits. Troponin is negative. EKG is sinus bradycardia. IMPRESSION: Chest pain with severe sinus bradycardia. Etiology unknown. SUGGESTION: Agree with present management. The patient needs cardiac evaluation by Holter and echocardiogram. The patient will also need EP study when feasible. We will ask also Dr. Sullivan to evaluate the patient for further management. Rudi Pickett MD [facility] # [id number]
--- NOTE | 2019-02-01 07:03 | HP ---
The patient is a 58-year-old male. The patient was seen and examined at bedside on 01/31/2019. CHIEF COMPLAINT: Chest pain. HISTORY OF PRESENT ILLNESS: Mr. Emeka De Santiago is a 58-year-old male with past medical history of cardiac arrhythmias, bradycardia, came to [facility] with intermittent left-sided chest pain that began 2 days ago. The patient described the pain as sharp, nonpleuritic, radiating down to the left arm. The patient admits nonproductive cough and chills that began 2 days ago. has since resolved, now admits to lightheadedness and episodes of shortness of breath at rest. PAST MEDICAL HISTORY: Sinus bradycardia. According to him, he has a loop recorder in his chest that was put by Dr. Ma. The patient do not have a primary care physician, no chef german . No fever. No chills. No hematuria. No hematochezia. Seen in his room. PHYSICAL EXAMINATION: VITAL SIGNS: Temperature 97.6, pulse 57, respiratory rate 18, blood pressure 137/82, pulse oximetry 97. HEENT: Head normocephalic, atraumatic. Eyes PERRLA. Extraocular muscles intact. Conjunctivae clear. Nose patent. Mucous membranes moist. NECK: Supple. No carotid bruits. No JVD or thyromegaly. CHEST: Bilaterally symmetrical. HEART: S1, S2 positive. LUNGS: Clear to auscultation. ABDOMEN: Soft. Bowel sounds present. No organomegaly. EXTREMITIES: No edema. No cyanosis. NEUROLOGIC: The patient is awake, alert. Moving all 4 extremities. No focal deficits. LABORATORY DATA: White blood cell 6, hemoglobin 15.7, hematocrit 48.7, platelets 220. Sodium 139, potassium 4.8, BUN 13, creatinine 1, glucose 82. ASSESSMENT AND PLAN: Mr. Emeka De Santiago is a 58-year-old male with history of bradycardia, history of having loop recorder, came with chest pain and shortness of breath. We admitted the patient. Chest x-ray reviewed by me. Echocardiography done. Results are pending. Seen by Dr. Pickett, chef german. The patient has bradycardia with chest pain. Need Holter monitor. Need EP study, Repeat labs. We will follow up. Aby Zheng MD [facility]
[2019-02-01 07:21] LABS: MEAN CELL VOLUME 90.7 fL (80.0-94.0); MEAN CORPUSCULAR HEMOGLOBIN 29.2 pg (27.0-31.0); MEAN CORPUSCULAR HGB CONC 32.3 g/dL (33.0-37.0); MEAN PLATELET VOLUME 9.7 fL (7.2-11.7); RBC 5.14 Mil/uL (4.40-5.90); RED CELL DISTRIBUTION WIDTH 14.5 % (11.5-14.5); WHITE BLOOD COUNT 5.9 K/uL (4.8-10.8)
[2019-02-01 07:42] LABS: BLOOD UREA NITROGEN 18 mg/dL (9-20); CALCIUM 9.6 mg/dl (8.6-10.4); GFR NON-AFRICAN AMERICAN > 60
--- NOTE | 2019-02-01 09:14 | CP.PCM.PN ---
<Aliyah Miranda - Last Filed: 02/01/19 15:51> Subjective - Date & Time of Evaluation Date of Evaluation: 02/01/19 Time of Evaluation: 09:14 - Subjective Subjective: Progress note for Dr. Sullivan Patient was seen and examined at bedside in no acute distress. Patient still complains of chest pressure/discomfort, but its better than yesterday, 01/24. Patient also complains of intermittent palpitations and dizziness. No acute even ts overnight. Denies sob, cough, abdominal pain, nausea, vomiting, fevers, headaches, vision changes. Objective - Vital Signs/Intake and Output Vital Signs (last 24 hours): Temp Pulse Resp BP Pulse Ox 97.7 F 40 L 18 119/78 97 02/01/19 07:02 02/01/19 08:01 02/01/19 07:02 02/01/19 07:02 02/01/19 07:02 - Medications Medications: Current Medications Aspirin (Aspirin Chewable) 81 mg PO DAILY [facility] Last Admin: 01/31/19 10:25 Dose: 81 mg Famotidine (Pepcid) 20 mg PO BID [facility] Last Admin: 01/31/19 17:22 Dose: 20 mg Heparin Sodium (Porcine) (Heparin) 5,000 units SC Q12 [facility] Last Admin: 01/31/19 21:31 Dose: 5,000 units - Labs Labs: 02/01/19 06:55 02/01/19 06:55 - Additional Findings Additional findings: - Constitutional Appears: Well, No Acute Distress - Head Exam Head Exam: ATRAUMATIC, NORMAL INSPECTION - Eye Exam Eye Exam: EOMI, Normal appearance - ENT Exam ENT Exam: Mucous Membranes Moist - Respiratory Exam Respiratory Exam: Clear to Auscultation Bilateral, NORMAL BREATHING PATTERN. absent: Rales, Rhonchi, Wheezes, Respiratory Distress - Cardiovascular Exam Cardiovascular Exam: Bradycardia, +S1, +S2. absent: Systolic Murmur - GI/Abdominal Exam GI & Abdominal Exam: Normal Bowel Sounds, Soft. absent: Distended, Firm, Guarding, Tenderness - Extremities Exam Extremities exam: Positive for: normal capillary refill, normal inspection, pedal pulses present. Negative for: pedal edema, tenderness - Neurological Exam Neurological exam: Alert, Oriented x3 - Psychiatric Exam Psychiatric exam: Normal Affect, Normal Mood - Skin Skin Exam: Dry, Normal Color, Warm Assessment and Plan - Assessment and Plan (Free Text) Plan: Patient is a 58 year old male with a PMHx of sinus bradycardia that presented to the [facility] ED on 01/30 for left sided chest pain of 3 days duration. Bradycardia - Symptomatic - Hx of Loop recorder (previous admission in 06/2018 for similar complaints; was seen by EP who evaluated loop recorder. Baseline HR 40-50s per loop recorder and per EMR)- [employer] loop recorder - EKG at admission: NSR@67bpm - EKG (01/31): sinus sunny@40bpm; Twave inversions in II, III, aVF - Trops x3 negative - BNP wnl - TSH/Free T4: wnl - ECHO: LVEF 65%, otherwise normal echo - Nuclear exercise stress test today-normal - EP, Dr. Santana, consulted. Help appreciated Case discussed with Dr. Nate Justin, PGY2 <Benito Sullivan - Last Filed: 02/01/19 20:13> Objective - Vital Signs/Intake and Output Vital Signs (last 24 hours): Temp Pulse Resp BP Pulse Ox 97.7 F 50 L 18 119/78 97 02/01/19 07:02 02/01/19 15:56 02/01/19 07:02 02/01/19 07:02 02/01/19 07:02 - Medications Medications: Current Medications Aspirin (Aspirin Chewable) 81 mg PO DAILY [facility] Last Admin: 02/01/19 10:19 Dose: 81 mg Famotidine (Pepcid) 20 mg PO BID [facility] Last Admin: 02/01/19 17:21 Dose: 20 mg Heparin Sodium (Porcine) (Heparin) 5,000 units SC Q12 [facility] Last Admin: 02/01/19 10:19 Dose: 5,000 units - Labs Labs: 02/01/19 06:55 02/01/19 06:55 Assessment and Plan - Assessment and Plan (Free Text) Plan: Patient seen and evaluated personally by me. Plan of care d/w the durable medical equipment repairer and as documented
--- NOTE | 2019-02-01 12:04 | CP.PCM.PN ---
Subjective - Date & Time of Evaluation Date of Evaluation: 02/01/19 Time of Evaluation: 12:02 - Subjective Subjective: CONDITION SAME. ASYMPTOMATIC, S. UVALDO AT HR 50. NO CP. VS WNL. Objective - Vital Signs/Intake and Output Vital Signs (last 24 hours): Temp Pulse Resp BP Pulse Ox 97.7 F 51 L 18 119/78 97 02/01/19 07:02 02/01/19 11:54 02/01/19 07:02 02/01/19 07:02 02/01/19 07:02 - Medications Medications: Current Medications Aspirin (Aspirin Chewable) 81 mg PO DAILY [facility] Last Admin: 02/01/19 10:19 Dose: 81 mg Famotidine (Pepcid) 20 mg PO BID [facility] Last Admin: 02/01/19 10: Dose: 20 mg Heparin Sodium (Porcine) (Heparin) 5,000 units SC Q12 [facility] Last Admin: 02/01/19 10:19 Dose: 5,000 units - Labs Labs: 02/01/19 06:55 02/01/19 06:55 - Constitutional Appears: No Acute Distress - Eye Exam Eye Exam: EOMI, Normal appearance, PERRL Pupil Exam: NORMAL ACCOMODATION, PERRL - ENT Exam ENT Exam: Mucous Membranes Moist, Normal Exam - Neck Exam Neck Exam: Full ROM, Normal Inspection. absent: Lymphadenopathy - Respiratory Exam Respiratory Exam: Clear to Ausculation Bilateral, NORMAL BREATHING PATTERN - Cardiovascular Exam Cardiovascular Exam: REGULAR RHYTHM, +S1, +S2. absent: Murmur - GI/Abdominal Exam GI & Abdominal Exam: Soft, Normal Bowel Sounds. absent: Tenderness - Extremities Exam Extremities Exam: Full ROM, Normal Capillary Refill, Normal Inspection. absent: Joint Swelling, Pedal Edema - Back Exam Back Exam: NORMAL INSPECTION - Neurological Exam Neurological Exam: Alert, Awake, CN II-XII Intact, Normal Gait, Oriented x3 Assessment and Plan - Assessment and Plan (Free Text) Assessment: SAME. Plan: STRESS TEST UNDER PROGRESS.
[2019-02-01] MEDS ORDERED: Caffeine Citrated **INJ** 20 MG/ML IV ONE (12:22)
--- NOTE | 2019-02-01 13:56 | CARD ---
APPROVED REPORT Date of service: 01/31/2019 EXAM: Two-dimensional and M-mode echocardiogram with Doppler and color Doppler. Other Information Quality : TDSRhythm : INDICATION Chest Pain 2D DIMENSIONS IVSd0.8 (0.7-1.1cm)LVDd4.5 (3.9-5.9cm) PWd0.8 (0.7-1.1cm)LA [id number] (18-58mL) LVDs2.9 (2.5-4.0cm)FS (%) 35.2 % LVEF (%)64.7 (>50%)LVEF (Choe's)60.83 % M-Mode DIMENSIONS Left Atrium (MM)3.90 (2.5-4.0cm)IVSd1.02 (0.7-1.1cm) Aortic Root3.49 (2.2-3.7cm)LVDd5.33 (4.0-5.6cm) Aortic Cusp Exc.2.06 (1.5-2.0cm)PWd0.66 (0.7-1.1cm) FS (%) 32 %LVDs3.63 (2.0-3.8cm) LVEF (%)60 (>50%) Mitral Valve MV E Fisxlquo10.1cm/sMV A Wegicdip74.8cm/sE/A ratio1.3 TDI Lateral E' Peak V10.35cm/sMedial E' Peak V8.87cm/sE/Lateral E'7.1 E/Medial E'8.2 <Conclusion> Suboptimal study Left ventricle: thickness: normal; size: normal; overall ejection fraction: 65%: diastolic filling pressures: normal Mitral valve: annulus: normal: leaflets: normal: excursion: normal; no significant trans-mitral gradient: No significant incompetence: left atrium: normal Aortic valve: leaflets: normal: excursion: normal; no significant trans-aortic gradient: trace incompetence: aortic root: normal Right sided Structures: Pulmonary valve: normal; no significant incompetence; Tricuspid valve: normal; no significant incompetence: Intra-cardiac hemodynamics: pulmonary systolic pressures: normal; central venous pressures: normal No pericardial effusion
--- NOTE | 2019-02-01 14:05 | CARD ---
APPROVED REPORT Date of service: 01/30/2019 EKG Measurement Heart [id number] <Conclusion> Normal sinus rhythm Normal ECG
[2019-02-01 23:52] VITALS: RESP 20
--- NOTE | 2019-02-02 00:06 | CARD ---
APPROVED REPORT Date of service: 01/31/2019 EKG Measurement Heart [id number] <Conclusion> Sinus bradycardia Septal infarct, age undetermined T wave abnormality, consider inferior ischemia Abnormal ECG
--- NOTE | 2019-02-02 04:25 | PN ---
DATE: 02/01/2019 SUBJECTIVE: The patient is a 58-year-old male. The patient was seen and examined at the bedside on 02/01/2019, looking comfortable, does not look in acute distress. Overnight, no event happened, but still complaining about chest pressure and discomfort, little bit better, feeling intermittent palpitation and dizziness. No shortness of breath. No abdominal pain. No nausea, vomiting, or diarrhea. No hematuria. No hematochezia. No fever. No headache. No dizziness. PHYSICAL EXAMINATION: VITAL SIGNS: Temperature 97.7, pulse 48, respiratory rate 18, blood pressure 119/70, and pulse oximetry 97. HEENT: Head; normocephalic and atraumatic. Eyes; PERRLA. Extraocular muscles intact. Conjunctivae are clear. Nose is patent. Mucous membrane moist. NECK: Supple. No carotid bruits. No JVD or thyromegaly. CHEST: Bilaterally symmetrical. HEART: S1 and S2 positive. LUNGS: Clear to auscultation. ABDOMEN: Soft. Bowel sounds present. No organomegaly. EXTREMITIES: No edema. No cyanosis. NEUROLOGIC: The patient is awake and alert. Moving all four extremities. No focal deficit. MEDICATIONS: Aspirin, famotidine, heparin. LABORATORY DATA: White blood cell 5.9, hemoglobin 15, hematocrit 42.6, and platelets 215. Sodium 137, potassium 4.1, BUN 18, creatinine 1, glucose 89. ASSESSMENT AND PLAN: Mr. Emeka De Santiago is a 58-year-old male with history of sinus bradycardia that presented to the [facility] with left-sided chest pain for three days, history of a loop recorder, previous admission in 06/2018 for similar complaints. Last seen by Electrophysiology who evaluated loop recorder, baseline heart rate 40s to 50s per loop recorder and per electronic medical record, loop recorder. Troponin x3 is negative. Basic metabolic profile within normal limits. Echo done ejection fraction 65%. Nuclear stress test today normal. Electrophysiology Dr. Santana was consulted, help appreciated. Seen by Dr. Rudi Pickett. Gastrointestinal and deep venous thrombosis prophylaxis. Repeat labs. We will follow up. Aby Zheng MD [email or web address]
[2019-02-02 07:33] LABS: BASO % 0.5 % (0.0-2.0); EOS # 0.3 K/uL (0.0-0.7); EOS % 4.5 % (0.0-4.0); HEMOGLOBIN 15.1 g/dL (12.0-18.0); LYMPH # 1.9 K/uL (1.0-4.3); LYMPH % 31.9 % (20.0-40.0); MEAN CORPUSCULAR HEMOGLOBIN 28.7 pg (27.0-31.0); MEAN CORPUSCULAR HGB CONC 31.9 g/dL (33.0-37.0); MEAN PLATELET VOLUME 9.5 fL (7.2-11.7); MONO % 17.2 % (0.0-10.0); NEUT # 2.7 K/uL (1.8-7.0); NEUT % 45.9 % (50.0-75.0); NRBC % 0.9 % (0.0-2.0); RBC 5.26 Mil/uL (4.40-5.90); RED CELL DISTRIBUTION WIDTH 14.3 % (11.5-14.5); WHITE BLOOD COUNT 5.9 K/uL (4.8-10.8)
[2019-02-02 07:45] VITALS: BP 106/66; TEMP 97.7
[2019-02-02 08:12] LABS: ALB/GLOB RATIO 1.1 (1.0-2.1); ALT/SGPT 95 U/L (21-72); AST/SGOT 57 U/L (17-59); BLOOD UREA NITROGEN 18 mg/dL (9-20); CALCIUM 9.3 mg/dl (8.6-10.4); GFR NON-AFRICAN AMERICAN > 60
--- NOTE | 2019-02-02 08:36 | CP.PCM.PN ---
Subjective - Date & Time of Evaluation Date of Evaluation: 02/02/19 Time of Evaluation: 08:35 - Subjective Subjective: Progress note for Dr. Sullivan Patient was seen and examined at bedside in no acute distress. Patient is still complaining of chest pressure/discomfort, intermittent dizziness and palpitations, but says he feels better than yesterday. He denies dyspnea, abdominal pain, n/v, fevers, headaches, leg pain, and leg swelling. Objective - Vital Signs/Intake and Output Vital Signs (last 24 hours): Temp Pulse Resp BP Pulse Ox 97.7 F 46 L 20 106/66 96 02/02/19 07:00 02/02/19 07:46 02/02/19 07:00 02/02/19 07:00 02/02/19 07:00 - Medications Medications: Current Medications Aspirin (Aspirin Chewable) 81 mg PO DAILY [facility] Last Admin: 02/01/19 10:19 Dose: 81 mg Famotidine (Pepcid) 20 mg PO BID [facility] Last Admin: 02/01/19 17:21 Dose: 20 mg Heparin Sodium (Porcine) (Heparin) 5,000 units SC Q12 [facility] Last Admin: 02/01/19 21:31 Dose: 5,000 units - Labs Labs: 02/02/19 07:11 02/02/19 07:11 - Additional Findings Additional findings: - Constitutional Appears: Well, No Acute Distress - Head Exam Head Exam: ATRAUMATIC, NORMAL INSPECTION - Eye Exam Eye Exam: EOMI, Normal appearance - ENT Exam ENT Exam: Mucous Membranes Moist - Respiratory Exam Respiratory Exam: Clear to Auscultation Bilateral, NORMAL BREATHING PATTERN. absent: Rales, Rhonchi, Wheezes, Respiratory Distress - Cardiovascular Exam Cardiovascular Exam: Bradycardia, +S1, +S2. absent: Systolic Murmur - GI/Abdominal Exam GI & Abdominal Exam: Normal Bowel Sounds, Soft. absent: Distended, Firm, Guarding, Tenderness - Extremities Exam Extremities exam: Positive for: normal capillary refill, normal inspection, pedal pulses present. Negative for: pedal edema, tenderness - Neurological Exam Neurological exam: Alert, Oriented x3 - Psychiatric Exam Psychiatric exam: Normal Affect, Normal Mood - Skin Skin Exam: Dry, Normal Color, Warm Assessment and Plan - Assessment and Plan (Free Text) Plan: Patient is a 58 year old male with a PMHx of sinus bradycardia that presented to the [facility] ED on 01/30 for left sided chest pain of 3 days duration. Bradycardia - Symptomatic - Hx of Loop recorder (previous admission in 06/2018 for similar complaints; was seen by EP who evaluated loop recorder. Baseline HR 40-50s per loop recorder and per EMR)- [employer] loop recorder - EKG at admission: NSR@67bpm - EKG (01/31): sinus sunny@40bpm; Twave inversions in II, III, aVF - Trops x3 negative - BNP wnl - TSH/Free T4: wnl - ECHO: LVEF 65%, otherwise normal echo - Nuclear exercise stress test-normal - EP, Dr. Santana, consulted. Help appreciated Case discussed with Dr. Nate Justin, PGY2
--- NOTE | 2019-02-02 10:24 | US ---
Date of service: 02/02/2019 HISTORY: [email or web address] COMPARISON: CT abdomen and pelvis with contrast performed 09/01/17 TECHNIQUE: Sonographic evaluation of the right upper quadrant of the abdomen. FINDINGS: LIVER: Measures 13.4 cm in length. Echogenic liver may be seen in setting of hepatic parenchymal disease or fatty infiltration. No focal hepatic mass identified. The main portal vein appears patent with normal directional flow. No intrahepatic bile duct dilatation. GALLBLADDER: No gallstones. No gallbladder wall thickening or pericholecystic edema. Negative sonographic Black's sign as assessed by the front desk assistant. COMMON BILE DUCT: Measures 3 mm. PANCREAS: Not well-visualized. RIGHT KIDNEY: Measures approximately 11.1 x 6.8 x 4.7 cm. No obstructing calculus or hydronephrosis identified. AORTA: Limited visualization appears grossly unremarkable. IVC: Not well-visualized. OTHER FINDINGS: None . IMPRESSION: Echogenic liver may be seen in setting of hepatic parenchymal disease or fatty infiltration.
--- NOTE | 2019-02-02 12:45 | CP.PCM.PN ---
Subjective - Date & Time of Evaluation Date of Evaluation: 02/02/19 Time of Evaluation: 12:42 - Subjective Subjective: NO ACUTE DISTRESS. STILL BRADYCARDIC. H/O SAME ABOUT ONE YEAR AGO , WITH LOOP RECORDER. STRESS TEST NEG. ECHO EF 65%. OTHERWISE WNL. Objective - Vital Signs/Intake and Output Vital Signs (last 24 hours): Temp Pulse Resp BP Pulse Ox 97.7 F 46 L 20 106/66 96 02/02/19 07:00 02/02/19 07:46 02/02/19 07:00 02/02/19 07:00 02/02/19 07:00 - Medications Medications: Current Medications Aspirin (Aspirin Chewable) 81 mg PO DAILY [facility] Last Admin: 02/02/19 09:06 Dose: 81 mg Famotidine (Pepcid) 20 mg PO BID [facility] Last Admin: 02/02/19 09:06 Dose: 20 mg Heparin Sodium (Porcine) (Heparin) 5,000 units SC Q12 [facility] Last Admin: 02/02/19 09:06 Dose: 5,000 units - Labs Labs: 02/02/19 07:11 02/02/19 07:11 - Constitutional Appears: No Acute Distress - Eye Exam Eye Exam: EOMI, Normal appearance, PERRL Pupil Exam: NORMAL ACCOMODATION, PERRL - ENT Exam ENT Exam: Mucous Membranes Moist, Normal Exam - Neck Exam Neck Exam: Full ROM, Normal Inspection. absent: Lymphadenopathy - Respiratory Exam Respiratory Exam: Clear to Ausculation Bilateral, NORMAL BREATHING PATTERN - Cardiovascular Exam Cardiovascular Exam: REGULAR RHYTHM, +S1, +S2. absent: Murmur - GI/Abdominal Exam GI & Abdominal Exam: Soft, Normal Bowel Sounds. absent: Tenderness - Extremities Exam Extremities Exam: Full ROM, Normal Capillary Refill, Normal Inspection. absent: Joint Swelling, Pedal Edema - Neurological Exam Neurological Exam: Alert, Awake, CN II-XII Intact, Normal Gait, Oriented x3 - Psychiatric Exam Psychiatric exam: Normal Affect, Normal Mood Assessment and Plan - Assessment and Plan (Free Text) Assessment: SAME. Plan: FOR EP EVAL.
[2019-02-02 12:47] VITALS: PULSE 49
--- NOTE | 2019-02-02 14:10 | CP.PCM.PN ---
Subjective - Date & Time of Evaluation Date of Evaluation: 02/02/19 Time of Evaluation: 14:10 - Subjective Subjective: PATIENT SEEN AND EXAMINED AT THE BEDSIDE Objective - Vital Signs/Intake and Output Vital Signs (last 24 hours): Temp Pulse Resp BP Pulse Ox 97.7 F 49 L 20 106/66 96 02/02/19 07:00 02/02/19 12:00 02/02/19 07:00 02/02/19 07:00 02/02/19 07:00 - Medications Medications: Current Medications Aspirin (Aspirin Chewable) 81 mg PO DAILY [facility] Last Admin: 02/02/19 09:06 Dose: 81 mg Famotidine (Pepcid) 20 mg PO BID [facility] Last Admin: 02/02/19 09:06 Dose: 20 mg Heparin Sodium (Porcine) (Heparin) 5,000 units SC Q12 [facility] Last Admin: 02/02/19 09:06 Dose: 5,000 units - Labs Labs: 02/02/19 07:11 02/02/19 07:11 Assessment and Plan - Assessment and Plan (Free Text) Assessment: FOLLOW UP WITH DR OCHOA IN HER OFFICE -----CALL FOR APPOINTMENT FOLLOW UP IWHT DR ROBERTS IN HIS OFFICE FOLLOW UP WITH DR PEREZ IN HIS OFFICE CONTINUE HOME MEDICATION ACTIVITY TOLERATED CALL DR OCHOA OR GO TO THE EMERGENCY ROOM IF SYMPTOM RETURN OR WORSENING
[2019-02-03 20:47] VITALS: O2SAT 97
--- NOTE | 2019-02-03 22:44 | CARD ---
APPROVED REPORT Date of service: 02/01/2019 Protocol: [facility] Test Type: NUCLEAR STRESS Test Indications: CP Medical History: CP Target HR: 164 bpm Resting ECG: Bradycardic Resting Heart Rate: 49 bpm Resting Blood Pressure: 132/80mmHg submaximum (85%): 139 bpm TEST SUMMARY [id number]:02..1.0./.0. PRETESTWARM-UP60:[id number]/80.0. EXERCISESTAGE 103:[id number]/80.0. EXERCISESTAGE 203:[id number]/80.0. EXERCISESTAGE 301:[id number]/80.0. [id number]:[id number]/80.0. PROCEDURE Pharmacologic stress testing was performed using 0.4mg per 5ml of regadenoson given intravenously over 7-10 seconds. POST EXERCISE Reason for Termination: Protocol Completed Target HR: No Max HR: 133 bpm 81% of Maximum Predicted HR: 164 bpm Exercise duration: 07:42 min:sec, 3 Stage Exercise capacity: 10.1METs Max Blood Pressure: 146/80mmHg Blood Pressure response to exercise: normal resting BP - appropriate response Heart Rate response to exercise: appropriate Chest Pain: No, none Angina index: 0 Arrhythmia: No, none ST Change: Yes, Depression upsloping Deviation: 0 mm INTERPRETATION Stress EKG Conclusion: Nuclear images to follow. EXAM: Myocardial Perfusion REST/STRESS Imaging Protocol The imaging protocol used to acquire images was Rest Tc-99m/stress Tc-99m 1 day Rest Spect myocardial perfusion imaging was performed in supine position 45 minutes following the injection of 13.0 mCi of Tc-99 Myoview. Gated Stress Spect was performed 45 minutes after intravenous 32.0 mCi Tc-99 Myoview injection. The images were gated to evaluate regional wall motion and calculate ventricular ejection fraction.Images were reconstructed using backfilter projection method in short horizontal and verticle long axis. Spect slices were generated. RESTING DATA [id number]/min ESV61.00mlMyocardial Edwe154.00g Av. Heart Rate49.00bpm EF56.00% STRESS DATA RYT826.44phJM3.50L/min ESV52.00mlMyocardial Dxra396.00g EF61.00% Regional WT score at stress:2.00 Regional WM score at stress:0.00 Summed WT score at stress:3.00 Av. Heart Rate55.00bpmSummed WM score at stress:0.00 LV Perf. Quant 17 Seg. SSS1.00 17 Seg. SRS4.00 17 Seg. SDS0.00 Stress Defect Extent (% LAD)0.00Rest Defect Extent (% LAD)0.00Rev. Defect Extent (% LAD)0.00 Stress Defect Extent (% LCX)6.30Rest Defect Extent (% LCX)26.30Rev. Defect Extent (% LCX)0.00 Stress Defect Extent (% RCA)0.00Rest Defect Extent (% RCA)0.00Rev. Defect Extent (% RCA)0.00 Stress Defect Extent (% ALLYSON)1.70Rest Defect Extent (% ALLYSON)7.20Rev. Defect Extent (% ALLYSON)0.00 Other Information Quality:Good Overall Exercise Capacity: Normal IMPRESSION Normal Myocardial Perfusion exercise stress study Left Ventricle LV Function:Left ventricle systolic function is normal. The Ejection Fraction is 60-65%. Metabolism/Perfusion There are no perfusion/metabolism defects. Conclusion 1. Normal Exercise Nuclear Stress Test. Normal EF
== END 2019-02-02 14:55 | disposition home or self-care (01) ==
LOC: C.ER 14:44 → C.9E 17:59 → C.5S 18:35
PROVIDERS: ADMIT Internal Medicine; ATTEND Internal Medicine
DX: R00.1 Bradycardia, unspecified (principal); R42 Dizziness and giddiness; F17.210 Nicotine dependence, cigarettes, uncomplicated
CPT/HCPCS: 36415; 71045; 76705; 78452; 80048; 80053; 82550; 82553; 83880; 84439; 84443; 84484; 85025; 85027; 93005; 93017; 93225; 93226; 93306; 99285; A9502; G0378; J1644; J1885; J2785

== ENCOUNTER → 2019-02-26 | Day surgery (SDC) | payer OTHER ==
[~2019-02-26] MED LIST: Iodixanol 320 MG/ML 200 ML BOTTLE IV ONE; Lidocaine 2% MPF (5 ml) Inj ONE; Midazolam 2 MG/2 ML VIAL ONE; Sodium Chloride 0.45% 1,000 ML IV SCH
[2019-02-26 13:35] VITALS: BMI 38.2
== END | disposition home or self-care (01) ==
LOC: C.CATHLAB 12:05
PROVIDERS: ATTEND Internal Medicine Cardiovascular Disease
DX: R00.1 Bradycardia, unspecified (principal)
CPT/HCPCS: 93458; 96372; 99152; 99153; C1760; C1769; C1887; C1893; J1644; J2250; J3010; J7030; Q9966